=== PATIENT | male | born 1960 | race Caucasian/White ===

== ENCOUNTER 2023-10-12 11:46 | Day surgery (SDC) | payer OTHER ==
[2023-10-11 09:48] LABS: Absolute Eosinophils 0.1 K/uL (0-0.5); Absolute Lymphocytes (CBC) 0.9 K/uL (0.7-4.9); Absolute Monocytes 0.8 K/uL (0.1-1.3); Absolute Neutrophil 6.3 K/uL (1.8-8.0); Basophils % 0.4 % (0-1.3); Eosinophils % 0.8 % (0-4.4); Hemoglobin 10.6 g/dL (13.6-17.9); Lymphocytes % 11.1 % (15.3-44.8); MCH 33.1 pg (27.0-35.0); MCHC 34.1 g/dL (32.0-36.0); MCV 97.1 fL (80-100); Monocytes % 9.7 % (3.3-12.3); Nucleated Red Blood Cells % 0.1 % (0-0); Platelets 296 thou/uL (152-406); RBC Red Blood Cell Count 3.19 M/uL (4.33-5.43)
--- NOTE | 2023-10-11 14:31 | EKG ---
Test Date: 2023-10-11 Test Time: 09:11:32 Combination Machine Tender: LEX MEASUREMENT RESULTS: Intervals: Rate: 69 FL: 184 QRSD: 88 QT: 442 QTc: 473 Belding: P: 80 FL: 184 QRS: 14 T: 44 INTERPRETIVE STATEMENTS: Sinus rhythm with premature atrial complexes Otherwise normal ECG Compared to ECG 05/11/2016 09:48:08 Atrial premature complex(es) now present Sinus bradycardia no longer present Electronically Signed On 10-11-23 14:31:16 CDT by Maxwell Perez
[2023-10-12] MEDS: Ringers Lactate 1,000 ML IV ONE (12:08)
[2023-10-12] MEDS ORDERED: propofoL 200 MG/20 ML VIAL IV ONE (12:49)
[2023-10-12] MEDS ORDERED: FENTANYL CITR 100 MCG/2 ML ONE (12:50)
[2023-10-12] MEDS ORDERED: MIDAZOLAM HCL 2 MG/2 ML INJ ONE (12:50)
[2023-10-12] MEDS ORDERED: ONDANSETRON 4 MG/2 ML VIAL ONE (12:50)
[2023-10-12] MEDS ORDERED: LIDOCAINE 1% MPF 5 ML VIAL ONE (12:50)
[2023-10-12] MEDS: CEFAZOLIN SODIUM 2 GM/VIAL ONE (14:05)
[2023-10-12] MEDS: LIDOCAINE HCL/EPINEPHRINE 20 ML MDV ONE (14:17)
[2023-10-12] MEDS: HEPARIN 5000 UNIT/ML 1 ML VIAL ONE (14:34)
--- NOTE | 2023-10-12 14:55 | P.OP ---
Preoperative diagnosis: Need for Chemotherapy - Oropharyngeal Cancer Postoperative diagnosis: Need for Chemotherapy - Oropharyngeal Cancer Primary procedure: Placement of Chemotherapy Port (port a cath) using ultrasound Secondary procedure: Flouroscopy with Interpretation Anesthesia: MAC + Local Estimated blood loss: <5cc Specimen: none Findings: dark non-pulsatile blood Complications: None Implants: Power Port Transferred to: Recovery Room Condition: Good
--- NOTE | 2023-10-12 14:57 | RAD REPORT ---
EXAM DESCRIPTION: RAD - Fluoroscopy <1 Hour - 10/12/2023 2:50 pm CLINICAL HISTORY: Venous catheter insertion. PORT A CATH COMPARISON: <Comparisons> FINDINGS: Fluoroscopic imaging is submitted from placement of a venous catheter. Details of the pro cedure not available. Fluoroscopy time: 0.5 minutes
--- NOTE | 2023-10-12 15:47 | RAD REPORT ---
EXAM DESCRIPTION: RAD - Chest Single View - 10/12/2023 3:33 pm CLINICAL HISTORY: s/p port a cath placement Chest pain. COMPARISON: <Comparisons> FINDINGS: Portable technique limits examination quality. The lungs are emphysematous but grossly clear. The heart is mildly enlarged in size. No displaced fra ctures.Right-sided venous catheter has tip in the SVC. IMPRESSION: Port catheter is in expected position with tip in the SVC. No pneumothorax.
[2023-10-12 17:00] VITALS: BP 125/79; TEMP 97.5; O2SAT 100
--- NOTE | 2023-10-12 20:21 | OP ---
Date of Procedure: 10/12/2023 Surgeon: Jens Hirsch MD, Preoperative Diagnosis: Need for chemotherapy/oropharyngeal cancer. Postoperative Diagnosis: Need for chemotherapy/oropharyngeal cancer. Procedure Performed: Ultrasound guidance, placement of a chemotherapy port/Port-A-Cath using ultraso und and fluoroscopic guidance with interpretation as well as microintroducer set. Anesthesia: MAC plus local with 1% lidocaine with epinephrine. Estimated Blood Loss: Less than 5 cc. Specimen: None. Findings: Dark nonpulsatile blood returned. Complications: None. Implants: PowerPort was placed, 8 Frisian. Disposition: The patient transferred to recovery room in good condition. Procedure In Detail: After informed consent was obtained, patient was brought to the operating room, prepped and draped in the usual sterile fashion. After adequate anesthesia was achieved, the patien t was placed in steep Trendelenburg position. Using ultrasound guidance, I cannulated the right inte rnal jugular vein on the first attempt without incident or complication. At this point, the micro wi re was advanced, entered the confluence of the SVC and right atrium. This was confirmed with fluoros copic guidance, at this point. At this point, I made a sima incision using an 11 blade at the needle insertion site and then I placed micro introducer sheath which was a 5-Frisian sheath over the micro wire, at this point. Micro wire was removed. Standard wire was applied, at this point. Fluoroscopi c guidance confirmed the position of the SVC and the right atrium. At this point, I anesthetized the tract on the chest wall and made an incision overlying the chest wall, created a pocket using electr ocautery for the port, ultimately bringing a tunneling device in through the insertion site. At this point, I placed the introducer sheath using Seldinger technique after removing the microintroducer s [place] over the wire into the SVC, and then introduced the port after removing the introducer sheath. At this point, using fluoroscopic guidance, I pulled the catheter back to the confluence of the SVC. At this point, I attached the lock collar to the port, trimmed it appropriately the tubing and lock ed the lock collar onto the PowerPort, at this point, and flushed with saline quite easily. At this point, fluoroscopic guidance confirmed the position. I then flushed it heparin super flush, at this point, placed it in the chest wall pocket, left the patient in steep Trendelenburg position until thi s portion was completed. I then secured it to the port with 3 interrupted 2-0 Prolene sutures in the chest prepectoral fascia. I then irrigated all skin incisions, closed the neck incision using 3-0 n ylon in an interrupted fashion and closed the port site using interrupted 3-0 Vicryl deep dermal sutu res as well as closing the skin with 4-0 Monocryl in a running fashion. Dermabond was placed over to p. The patient tolerated the procedure without incident or complication, transferred to PACU in good condition. All counts were correct at the end of the case. HIRO/MAXIMINO Voice ID: [id number] Report ID: [id number]
== END 2023-10-12 16:50 | disposition home or self-care (01) ==
LOC: OR 11:46
PROVIDERS: ATTEND Surgery
PROC: 0JH60WZ Insertion of Totally Implantable Vascular Access Device into Chest Subcutaneous Tissue and Fascia, Open Approach (ICD-10-PCS; principal; 2023-10-12 14:15)
DX: C10.9 Malignant neoplasm of oropharynx, unspecified (principal)
CPT/HCPCS: 93005; 85025; 80048; 36415; 71045; 76000; 36561; J1644 ×2; J2704; J2001; J2250; J3010; J2405; J7120

== ENCOUNTER 2023-11-09 09:58 | Inpatient (IN) | payer OTHER ==
--- OUTSIDE RECORDS SUMMARY | 2023-11-09 10:01 | XMS REPORT | Continuity of Care Document ---
Author Name Unknown Address [address] [place] [address] thconnect Address [address] [place] [address] Care Team Providers Care [id number] Application Developer Name Role Phone SISSON_C Attending Clinician Unavailable SISSON_C Admitting Clinician Unavailable Encounters Start Date/Time End Date/Time Encounter Type Admission Type Attending Clinicians Care Facility Care Department Encounter ID Source 2023-06-16 00:00:00 2023-06-16 00:00:00 Outpatient SISSON_C [facility] [id number] [facility]
[2023-11-09 11:40] LABS: Absolute Basophils 0.1 K/uL (0-0.5); Absolute Lymphocytes (CBC) 0.1 K/uL (0.7-4.9); Absolute Monocytes 0.6 K/uL (0.1-1.3); Absolute Neutrophil 19.2 K/uL (1.8-8.0); Basophils % 0.3 % (0-1.3); Hematocrit 22.3 % (39.6-49.0); Hemoglobin 7.1 g/dL (13.6-17.9); Lymphocytes % 0.7 % (15.3-44.8); MCH 31.1 pg (27.0-35.0); MCHC 31.8 g/dL (32.0-36.0); MCV 97.7 fL (80-100); MPV 9.6 fL (7.6-11.3); Monocytes % 2.9 % (3.3-12.3); Neutrophils % 96.1 % (41.7-73.7); Platelets 70 thou/uL (152-406); RBC Red Blood Cell Count 2.29 M/uL (4.33-5.43); Red Cell Distribution Width 14.1 % (12.1-15.2)
[2023-11-09 11:48] LABS: PT Prothrombin Time 14.1 SECONDS (9.4-12.5); PTT, Activated Partial Thromb 21.2 SECONDS (24.3-36.9); Protime INR 1.27
--- NOTE | 2023-11-09 11:54 | RAD REPORT ---
EXAM DESCRIPTION: RADChest Single View11/09/2023 11:23 am CLINICAL HISTORY: TRAUMA COMPARISON: Chest Single View dated 10/12/2023 TECHNIQUE: Portable AP view of the chest. FINDINGS: Right chest wall Port-A-Cath unchanged in position. The lungs are clear. No pneumothorax or effusion. The cardiomediastinal contours are unremarkable. IMPRESSION: No acute cardiopulmonary process.
--- NOTE | 2023-11-09 11:59 | RAD REPORT ---
EXAM DESCRIPTION: RAD - Pelvis - 11/09/2023 11:23 am CLINICAL HISTORY: TRAUMA COMPARISON: No comparisons TECHNIQUE: Single AP view of the pelvis. FINDINGS: The visualized pelvic ring is intact. No suspicious osseous lesions. Right total hip arthr oplasty, with satisfactory hardware alignment. Moderate left hip joint degenerative changes. Osseous bumps at the left femoral head/ neck junction, may predispose to femoroacetabular impingement. Other pelvic joints are unremarkable. Visualized aspects of the abdomen and soft tissues are unremarkable. IMPRESSION: No acute osseous abnormality of the bony pelvis. Moderate left hip joint degenerative changes.
[2023-11-09 12:09] LABS: Albumin 2.4 g/dL (3.4-5.0); Albumin/Globulin Ratio 0.8 (1.1-1.8); Anion Gap 11.1 mEq/L (5.0-15.0); Bilirubin Total 0.6 mg/dL (0.2-1.0); Magnesium 2.7 mg/dL (1.6-2.4); Potassium 4.1 mEq/L (3.5-5.1); Protein, Total 5.4 g/dL (6.4-8.2)
[2023-11-09 12:10] LABS: Troponin High Sensitivity 372.8 pg/mL (<58.9)
[2023-11-09 12:26] LABS: Blood Morphology Comment NOT SEEN (NOT SEEN); Platelet Estimate DECR; White Blood Cell Scan OK (OK)
--- NOTE | 2023-11-09 12:56 | RAD REPORT ---
EXAM DESCRIPTION: CT - Head C Spine Cap Wo Con - 11/09/2023 12:33 pm CLINICAL HISTORY: Trauma, head and neck injury. Chest, abdomen and pelvis pain. TRAUMA COMPARISON: Chest Single View dated 11/09/2023; Pelvis dated 11/09/2023 TECHNIQUE: CT head without contrast. CT cervical spine without contrast with coronal and sagittal reformatted images. CT chest, abdomen and pelvis without contrast with coronal and sagittal reformatted images of the spi ne. All CT scans are performed using dose optimization technique as appropriate and may include automated exposure control or mA/KV adjustment according to patient size. FINDINGS: CT HEAD WITHOUT CONTRAST: No intracranial hemorrhage, hydrocephalus or extra-axial fluid collection. No areas of brain edema o r midline shift. There is a large mass measuring 5.0 x 2.5 cm right retromolar trigone region. The right mastoid effusion. The calvarium is intact. CT CERVICAL SPINE WITHOUT CONTRAST: No fracture or subluxation. Moderate lower cervical degenerative changes. The prevertebral soft tissu es are normal in thickness. CT CHEST, ABDOMEN, PELVIS WITHOUT CONTRAST: NOTE: Lack of contrast is a significant limitation in the assessment of trauma related findings. Spec ifically, solid organ, vascular and bowel evaluation is significantly limited. The lungs are clear.No pneumothorax or pericardial/pleural fluid. No evidence of intra-abdominal visceral injury, free fluid or free air is seen within the above detai led limitations. Moderate stool retained throughout the colon. Right total hip arthroplasty No fractures. IMPRESSION: Negative for acute traumatic findings within the above detailed limitations. 5 cm right-sided neck mass, compatible with malignancy.
--- NOTE | 2023-11-09 14:22 | EDPHYS ---
Physician Documentation [facility] Name: Jori Beckham Age: 63 yrs Sex: Male : 1960 Arrival Date: 11/09/2023 Time: 09:58 Bed 24 Private MD: ED Physician Tequila Briseno HPI: 11/08 15:05 This 63 yrs old Male presents to ER via EMS with complaints of General Weakness, Fall sd2 Injury. 15:05 63 yo M presents via EMS with CC of fall yesterday where he was found on the ground by sd2 his grandson. He has continued to have generalized weakness for the past few days as well. Denies any fever, chest pain but does endorse bilateral leg edema. . Historical: - Allergies: 10:24 No Known Allergies; ph - Home Meds: 10:24 Hydrocodone-Acetaminophen Oral [Active]; Decadron Oral [Active]; ph - PMHx: 10:24 throat cancer; ph - Immunization history:: Adult Immunizations unknown. - Infectious Disease History:: Denies. - Immunization history: Last tetanus immunization: unknown. - Social history:: Smoking status: unknown. ROS: 15:05 Constitutional: Negative for fever, chills, and weight loss, Eyes: Negative for injury, sd2 pain, redness, and discharge, Cardiovascular: Negative for chest pain, palpitations, and edema, Respiratory: Negative for shortness of breath, cough, wheezing. Abdomen/GI: Negative for abdominal pain,vomiting, diarrhea. Positive for nausea. : Negative for dysuria, frequency or hematuria. MS/Extremity: Negative for injury and deformity, Skin: Negative for injury, rash, and discoloration, Neuro: Negative for headache, numbness and tingling. Exam: 15:05 Constitutional: This is a well developed, well nourished patient who is awake, alert, sd2 and in no acute distress. Head/Face: Normocephalic, atraumatic. Eyes: EOMI, normal conjunctiva bilaterally Chest/axilla: Normal chest wall appearance and motion. Nontender with no deformity. Cardiovascular: Irregularly irregular rhythm No gallops, murmurs, or rubs. 2+ distal pulses. Respiratory: Lungs have equal breath sounds bilaterally, clear to auscultation and percussion. No rales, rhonchi or wheezes noted. No increased work of breathing, no retractions or nasal flaring. Abdomen/GI: Soft, non-tender, with normal bowel sounds. No guarding or rebound. No evidence of tenderness throughout. Skin: Warm, dry with normal turgor. Normal color with no rashes, no lesions, and no evidence of cellulitis. MS/ Extremity: Pulses equal, no cyanosis. Neurovascular intact. Full, normal range of motion. 2+ pitting BLE edema Psych: Awake, alert, with orientation to person, place and time. Behavior, mood, and affect are within normal limits. 15:05 ECG was reviewed by the Attending Physician. A-fib, rate 83, no STEMI criteria Vital Signs: 10:19 BP 110 / 73; Pulse 92; Resp 18; Temp 97.4; Pulse Ox 100% on R/A; Weight 95.25 kg; ph Height 5 ft. 9 in. ; 12:30 BP 115 / 76; Pulse 80; Resp 18; Pulse Ox 99% on R/A; ph 13:30 BP 110 / 79; Pulse 81; Resp 19; Pulse Ox 100% on R/A; ph 15:15 BP 112 / 71; Pulse 100; Resp 18; Pulse Ox 97% on R/A; ph 10:19 Body Mass Index 31.01 (95.25 kg, 175.26 cm) ph [place] Coma Score: 11:36 Eye Response: spontaneous(4). Motor Response: obeys commands(6). Verbal Response: ph oriented(5). Total: 15. Trauma Score (Adult): 11:36 Eye Response: spontaneous(1); Verbal Response: oriented(1); Motor Response: obeys ph commands(2); Systolic BP: > 89 mm Hg(4); Respiratory Rate: 10 to 29 per min(4); Marvin Score: 15; Trauma Score: 12 MDM: 10:21 Patient medically screened. sd2 15:07 Differential diagnosis: ICH, electrolyte abnormality, rhabdo, ACS, anemia, dehydration sd2 among others. Data reviewed: vital signs, nurses notes, EMS record, lab test result(s), EKG, radiologic studies. Management of patient was discussed with the following: Hospitalist: Dr. Quintanilla. I considered the following discharge prescriptions or medication management in the emergency department Medications were administered in the Emergency Department. See MAR. Historians other than the Patient: Daughter/Son: Grandson and sister at . Care significantly affected by the following chronic conditions: Cancer. Counseling: I had a detailed discussion with the patient and/or guardian regarding the historical points, exam findings, and any diagnostic results supporting the discharge/admit diagnosis, lab results, radiology results, the need for further work-up and treatment in the hospital. ED course: Labs consistent with CHF with likely demand ischemia vs NSTEMI. Prior creatinine elevated and continues to be elevated today. BP stable and A-fib rate controlled which is also new per patient. Will admit for further management. IV Lasix started and given in ER as well as ASA.. 11/08 15:22 Order name: Type and Screen [facility] 11/08 10:58 Order name: CBC with Diff; Complete Time: 13:03 11/08 10:58 Order name: CMP; Complete Time: 13:03 11/08 10:58 Order name: Magnesium; Complete Time: 13:03 11/08 10:58 Order name: Troponin High Sensitivity; Complete Time: 13:03 11/08 10:58 Order name: BNP; Complete Time: 13:03 11/08 10:58 Order name: Lipase; Complete Time: 13:03 11/08 10:58 Order name: Urinalysis w/ reflexes 11/08 10:58 Order name: Procalcitonin; Complete Time: 13:03 11/08 10:59 Order name: PT-INR; Complete Time: 12:00 11/08 10:59 Order name: Ptt, Activated; Complete Time: 12:00 11/08 12:27 Order name: CBC Smear Scan; Complete Time: 13:03 WI 11/08 14:30 Order name: CK 11/08 15:22 Order name: Packed RBC Leukored WI 11/08 15:22 Order name: BB Add On WI 11/08 15:22 Order name: Hematocrit WI 11/08 15:22 Order name: Hemoglobin [facility] 11/08 15:22 Order name: Thyroid Stimulating Hormone [facility] 11/08 15:22 Order name: Urinalysis w/ reflexes WI 11/08 15:22 Order name: Basic Metabolic Panel [facility] 11/08 15:22 Order name: Basic Metabolic Panel EDMS 11/08 15:22 Order name: Basic Metabolic Panel EDMS 11/08 15:22 Order name: Comprehensive Metabolic Panel EDMS 11/08 15:22 Order name: Comprehensive Metabolic Panel EDMS 11/08 15:22 Order name: Comprehensive Metabolic Panel EDMS 11/08 15:22 Order name: Comprehensive Metabolic Panel EDMS 11/08 15:22 Order name: Comprehensive Metabolic Panel EDMS 11/08 15:22 Order name: Lipid Profile EDMS 11/08 15:22 Order name: Lipid Profile EDMS 11/08 15:22 Order name: Magnesium EDMS 11/08 15:22 Order name: Magnesium EDMS 11/08 15:22 Order name: Magnesium EDMS 11/08 15:22 Order name: Magnesium EDMS 11/08 15:22 Order name: Magnesium EDMS 11/08 15:22 Order name: Phosphorus EDMS 11/08 15:22 Order name: Phosphorus EDMS 11/08 15:22 Order name: Phosphorus EDMS 11/08 15:22 Order name: Phosphorus EDMS 11/08 15:22 Order name: Phosphorus EDMS 11/08 15:22 Order name: Protime (+INR) EDMS 11/08 15:22 Order name: Protime (+INR) EDMS 11/08 15:22 Order name: Troponin High Sensitivity EDMS 11/08 15:22 Order name: Troponin High Sensitivity EDMS 11/08 15:22 Order name: Troponin High Sensitivity EDMS 11/08 15:22 Order name: Hematocrit EDMS 11/08 15:22 Order name: Hemoglobin EDMS 11/08 15:22 Order name: Blood Culture EDMS 11/08 15:23 Order name: Ferritin EDMS 11/08 15:23 Order name: Iron EDMS 11/08 15:24 Order name: ABO/RH typing EDMS 11/08 15:24 Order name: Antibody Screen EDMS 11/08 18:05 Order name: PSA Screen EDMS 11/08 18:36 Order name: ABO/RH no charge EDMS 11/08 19:33 Order name: Acute Hepatitis Panel EDMS 11/09 05:19 Order name: Hemoglobin EDMS 11/09 05:19 Order name: Hematocrit EDMS 11/09 12:14 Order name: Potassium EDMS 11/08 10:58 Order name: XRAY Chest (1 view); Complete Time: 12:00 sd2 11/08 10:58 Order name: XRAY Pelvis; Complete Time: 12:00 sd2 11/08 12:24 Order name: Head C Spine Cap Wo Con; Complete Time: 13:03 EDWI 11/08 15:22 Order name: Echo with Doppler EDWI 11/08 15:22 Order name: CONS Physician Consult EDWI 11/08 10:58 Order name: EKG - Nurse/Tech; Complete Time: 11:59 sd2 Administered Medications: 11:35 Drug: NS 0.9% IV 500 ml IV at bolus once Route: IV; Rate: bolus; Site: right ph antecubital; 13:00 Follow up: Response: No adverse reaction; IV Status: Completed infusion; IV Intake: ph 500ml 15:15 Drug: Aspirin PO Chewable Tablet 324 mg PO once; 81 mg tablets x 4 Route: PO; ph 16:00 Follow up: Response: No adverse reaction ph 15:15 Drug: Furosemide IVP 40 mg IVP once; give over 2 minutes Route: IVP; Site: right ph antecubital; 16:00 Follow up: Response: No adverse reaction ph Disposition Summary: 11/09/23 14:21 Hospitalization Ordered Notes: Hospitalization Status: Inpatient Admission sd2 Provider: Thania Treviño sd2 Condition: Stable sd2 Problem: new sd2 Symptoms: are unchanged sd2 Bed/Room Type: [place] [id number] Location: Intensive Care Unit(11/10/23 12:17) [facility] Room Assignment: -(11/10/23 12:17) [facility] Diagnosis - Fall on same level, unspecified sd2 - Weakness sd2 - Atrial fibrillation sd2 - Fluid overload sd2 - Acute Kidney Injury sd2 Forms: - Medication Reconciliation Form sd2 - SBAR form sd2 - Leadership Thank You Letter sd2 Signatures: Dispatcher [employer] EDMS Clarisse Jarvis RN RN ph Tiki Hodge RN RN vc1 Tequila Briseno MD MD sd2 Teri Melchor [facility] Corrections: (The following items were deleted from the chart) 10:59 10:59 CBC+H.LAB.BRZ ordered. EDMS EDMS 10:59 10:59 COMPREHENSIVE METABOLIC PANEL+C.LAB.BRZ ordered. EDMS EDMS 10:59 10:59 MAGNESIUM+C.LAB.BRZ ordered. EDMS EDMS 10:59 10:59 Troponin High Sensitivity+C.LAB.BRZ ordered. EDMS EDMS 10:59 10:59 PROBNP+C.LAB.BRZ ordered. EDMS EDMS 10:59 10:59 LIPASE+C.LAB.BRZ ordered. EDMS EDMS 10:59 10:59 Urinalysis+U.LAB.BRZ ordered. EDMS EDMS 10:59 10:59 PCT+C.LAB.BRZ ordered. EDMS EDMS 10:59 10:59 Chest Single View+RAD.RAD.BRZ ordered. EDMS EDMS 10:59 10:59 Pelvis+RAD.RAD.BRZ ordered. EDMS EDMS 10:59 10:59 Head C Spine CAP W Con+CT.RAD.BRZ ordered. EDMS EDMS 10:59 10:59 PROTIME (+INR)+COAG.LAB.BRZ ordered. EDMS EDMS 10:59 10:59 PTT, ACTIVATED+COAG.LAB.BRZ ordered. EDMS EDMS 22:39 14:21 Telemetry/MedSurg (Inpatient) sd2 vc1 22:39 14:21 sd2 vc1 11/09 12:17 11/08 22:39 [facility] ER HOLD vc1 jr12 11/09 12:17 11/08 22:39 ERHOLD- vc1 jr
--- NOTE | 2023-11-09 14:22 | ER ---
Nurse's Notes [facility] Name: Jori Beckham Age: 63 yrs Sex: Male : 1960 Arrival Date: 11/09/2023 Time: 09:58 Bed 24 Private MD: Diagnosis: Fall on same level, unspecified;Weakness;Atrial fibrillation;Fluid overload Presentation: 11/08 10:19 Chief complaint: EMS states: Pt hx of throat cancer, currently receives daily radiation ph treatment, pt fell yesterday d/t weakness and was "out of it for a few hours", did not go for radiation today d/t weakness, VSS for EMS, BGL 200s, denies injury from fall but c/o pain in buttocks. Coronavirus screen: Vaccine status: Patient reports receiving the 2nd dose of the covid vaccine. Ebola Screen: No symptoms or risks identified at this time. Initial Sepsis Screen: Does the patient meet any 2 criteria? No. Patient's initial sepsis screen is negative. Does the patient have a suspected source of infection? No. Patient's initial sepsis screen is negative. Risk Assessment: Do you want to hurt yourself or someone else? Patient reports no desire to harm self or others. Onset of symptoms was November 09, 2023. 10:19 Method Of Arrival: EMS: [facility] 10:19 Acuity: MICHELLE 3 ph 10:19 Care prior to arrival: None. Mechanism of Injury: No Mechanism of Injury. Trauma event ph details: Injury occurred in the [facility], Injury occurred: at home. Injury occurred: November 09, 2023. Triage Assessment: 10:25 General: Appears in no apparent distress. Behavior is calm, cooperative. Pain: ph Complains of pain in buttocks. Neuro: Level of Consciousness is awake, alert, obeys commands, Oriented to person, place, time, situation. Cardiovascular: Capillary refill < 3 seconds in bilateral fingers. Respiratory: Airway is patent Respiratory effort is even, unlabored. Derm: Skin is pale. Musculoskeletal: Circulation, motion, and sensation intact. Trauma Activation: Not Applicable Physician: ED Physician; Name: ; Notified At: ; Arrived At: Physician: General Surgeon; Name: ; Notified At: ; Arrived At: Physician: Radiology; Name: ; Notified At: ; Arrived At: Physician: Respiratory; Name: ; Notified At: ; Arrived At: Physician: Lab; Name: ; Notified At: ; Arrived At: Historical: - Allergies: 10:24 No Known Allergies; ph - Home Meds: 10:24 Hydrocodone-Acetaminophen Oral [Active]; Decadron Oral [Active]; ph - PMHx: 10:24 throat cancer; ph - Immunization history:: Adult Immunizations unknown. - Infectious Disease History:: Denies. - Immunization history: Last tetanus immunization: unknown. - Social history:: Smoking status: unknown. Screenin:36 [facility] ED Fall Risk Assessment (Adult) History of falling in the last 3 months, ph including since admission No falls in past 3 months (0 pts) Confusion or Disorientation No (0 pts) Intoxicated or Sedated No (0 pts) Impaired Gait No (0 pts) Mobility Assist Device Used No (0 pt) Altered Elimination No (0 pt) Score/Fall Risk Level 0 - 2 = Low Risk Oriented to surroundings, Maintained a safe environment, Hourly rounding (assess needs \\T\\ fall precautionary measures) done. Abuse screen: Denies threats or abuse. Denies injuries from another. Nutritional screening: No deficits noted. Tuberculosis screening: No symptoms or risk factors identified. Primary Survey: 11:38 NO uncontrolled hemorrhage observed. A: The client is awake and alert. The airway is ph patent. Breathing/Chest: Spontaneous respiratory effort, equal unlabored respirations, breath sounds clear bilaterally, regular pattern, symmetrical chest rise and fall. Circulation: No external hemorrhage present. Regular and strong central pulse, skin warm/dry/normal color. Disability Pupils are equal, round, reactive to light and accommodation. Client is alert. Exposure/Environment: All clothing and personal items were removed. Forensic evidence collection is not deemed to be indicated at this time. Items placed in patient belonging bag. There is no evidence of uncontrolled external bleeding. No obvious injuries are noted at this time. A warming method has been applied: A warm blanket has been provided to the patient. 11/09 00:00 Reassessment Breathing: Spontaneous respiratory effort, equal unlabored respirations, cp4 breath sounds clear bilaterally, regular pattern with symmetrical chest rise and fall. Assessment: 11/08 11:37 General: Appears in no apparent distress. ill. Pain: Complains of pain in buttocks. ph Neuro: Level of Consciousness is awake, alert, obeys commands, Oriented to person, place, time, situation, Reports weakness. Cardiovascular: Capillary refill < 3 seconds in bilateral fingers Patient's skin is warm and dry. Respiratory: Airway is patent Respiratory effort is even, unlabored. Derm: Skin is pink, warm \\T\\ dry. Musculoskeletal: Range of motion: intact in all extremities. 13:00 Reassessment: Patient appears in no apparent distress at this time. Patient and/or ph family updated on plan of care and expected duration. Pain level reassessed. Patient is alert, oriented x 3, equal unlabored respirations, skin warm/dry/pink. 14:30 Reassessment: Patient appears in no apparent distress at this time. Patient and/or ph family updated on plan of care and expected duration. Pain level reassessed. Patient is alert, oriented x 3, equal unlabored respirations, skin warm/dry/pink. Vital Signs: 10:19 BP 110 / 73; Pulse 92; Resp 18; Temp 97.4; Pulse Ox 100% on R/A; Weight 95.25 kg; ph Height 5 ft. 9 in. ; 12:30 BP 115 / 76; Pulse 80; Resp 18; Pulse Ox 99% on R/A; ph 13:30 BP 110 / 79; Pulse 81; Resp 19; Pulse Ox 100% on R/A; ph 15:15 BP 112 / 71; Pulse 100; Resp 18; Pulse Ox 97% on R/A; ph 10:19 Body Mass Index 31.01 (95.25 kg, 175.26 cm) ph [place] Coma Score: 11:36 Eye Response: spontaneous(4). Motor Response: obeys commands(6). Verbal Response: ph oriented(5). Total: 15. Trauma Score (Adult): 11:36 Eye Response: spontaneous(1); Verbal Response: oriented(1); Motor Response: obeys ph commands(2); Systolic BP: > 89 mm Hg(4); Respiratory Rate: 10 to 29 per min(4); [place] Score: 15; Trauma Score: 12 ED Course: 10:18 Patient arrived in ED. ph 10:21 Tequila Briseno MD is Attending Physician. sd2 10:24 Triage completed. ph 10:25 Arm band placed on Patient placed in an exam room, on a stretcher. ph 11:12 Jarvis, Clarisse, RN is Primary Nurse. ph 11:25 XRAY Chest (1 view) In Process Unspecified. EDMS 11:25 XRAY Pelvis In Process Unspecified. EDMS 11:35 Ptt, Activated Sent. ph 11:35 PT-INR Sent. ph 11:35 Procalcitonin Sent. ph 11:35 Lipase Sent. ph 11:35 BNP Sent. ph 11:35 CBC with Diff Sent. ph 11:35 CMP Sent. ph 11:36 Magnesium Sent. ph 11:36 Troponin High Sensitivity Sent. ph 11:36 Initial lab(s) drawn, by me, sent to lab. Maintain EMS IV. Dressing intact. Good blood ph return noted. Site clean \\T\\ dry. Gauge \\T\\ site: 20 RAC. 12:33 Patient has correct armband on for positive identification. Bed in low position. Call ph light in reach. Side rails up X2. Client placed on continuous cardiac and pulse oximetry monitoring. NIBP monitoring applied. athletic monitor on. Door closed. Noise minimized. Warm blanket given. Pillow given. PO fluids given. 12:33 Patient maintains SpO2 saturation greater than 95% on room air. ph 12:33 Thermoregulation: warm blanket given to patient. ph 12:35 Head C Spine Cap Wo Con In Process Unspecified. EDMS 14:20 Thania Treviño MD is Hospitalizing Provider. sd2 15:00 No provider procedures requiring assistance completed. Patient admitted, IV remains in ph place. 11/09 00:00 Provided Education on: admission. cp4 06:28 Cleaned of incontinence. Patient refused gown. vk Administered Medications: 11/08 11:35 Drug: NS 0.9% IV 500 ml IV at bolus once Route: IV; Rate: bolus; Site: right ph antecubital; 13:00 Follow up: Response: No adverse reaction; IV Status: Completed infusion; IV Intake: ph 500ml 15:15 Drug: Aspirin PO Chewable Tablet 324 mg PO once; 81 mg tablets x 4 Route: PO; ph 16:00 Follow up: Response: No adverse reaction ph 15:15 Drug: Furosemide IVP 40 mg IVP once; give over 2 minutes Route: IVP; Site: right ph antecubital; 16:00 Follow up: Response: No adverse reaction ph Medication: 18:05 VIS not applicable for this client. ph Intake: 13:00 IV: 500ml; Total: 500ml. ph 11/09 00:00 PO: 0ml; Total: 500ml. cp4 Outcome: 11/08 14:21 Decision to Hospitalize by Provider. sd2 15:00 Admitted to ER Hold. Please see [facility] for further documentation. ph 15:00 Condition: stable 15:00 Instructed on the need for admit, 11/09 00:00 ER holdPatient's length of stay extended due to cp4 13:47 Patient left the ED. eb Signatures: Dispatcher [employer] Clarisse Acevedo RN RN ph Nabila Major Stephanie, MD MD sd2 Tsering Cooper cp4 Anushka Marr
[2023-11-09] MEDS ORDERED: ASPIRIN 81 MG CHEWABLE TABLET ONE (15:05)
[2023-11-09] MEDS ORDERED: FUROSEMIDE 40 MG/4 ML VIAL ONE ×2 (15:05→22:08)
--- NOTE | 2023-11-09 15:09 | P.HP ---
Certification for Inpatient Patient admitted to: Inpatient With expected LOS: >2 Midnights <DaphneyGiulia Sanches - Last Filed: 11/09/23 16:49> Patient History Date of Service: 11/09/23 Primary Care Provider: none Reason for admission: Swelling, weakness History of Present Illness: Mr. Beckham is a 63-year-old gentleman who does not frequent a primary care physician. He is a rather poor historian . 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 Thus his voice is weak, mildly difficult to understand, without airway compromise. He presented to the emergency department today with a complaint of weakness, admits to a fall yesterday (11/08/2023). On exam he is a pale, disheveled, alert gentleman with pitting edema/anasarca, and scattered petechiae. He is noted to have an irregularly irregular rhythm with tachycardia. He states yesterday he just "swole up". He admits to mild dysphagia and has been taking clear to full liquids. He denies fever, nausea, vomiting, gingival bleeding, or black stools. He denies ever smoking; however, he did drink daily but states he quit 3 months ago and denies ever having DTs. We will admit him for aggressive diuresis, packed red blood cells, rate control of A-fib, echocardiogram, serial H&H's, and consultation to both cardiology and nephrology. Home medications list reviewed: Yes - Past Medical/Surgical History Has patient received pneumonia vaccine in the past: No Diabetic: No -: Right hip fx -: right tonsillar ca -: hx of ETOH abuse -states he quit three months ago, denies hx of DTs -: right hip surgery Psychosocial/ Personal History: Single, lives alone, states Dr. Rigo bowles agnosed his tonsillar cancer. He receives radiation and chemo every Tuesday for the last 3 weeks - Family History Family History: Reviewed- Non-Contributory - Social History Smoking Status: Never smoker Alcohol use: Yes CD- Drugs: No Caffeine use: No Place of Residence: Home <Giulia Shelley - Last Filed: 11/09/23 16:49> Date of Service: 11/09/23 <Thania Treviño - Last Filed: 11/09/23 18:09> Allergies No Known Allergies Allergy (Verified 10/12/23 12:23) Home Medications: Amoxicillin/Potassium Clav [Amox-Clav 875-125 mg Tablet] 1 each PO BID 10/11/23 Hydrocodone/Acetaminophen [Hydrocodone-Acetamin 5-325 mg] 1 tab PO Q6HP PRN 10/11/23 Review of Systems 10-point ROS is otherwise unremarkable General: Weakness, Malaise Cardiovascular: Palpitations, Edema Neurological: Other (syncopal 11/08/23) <Giulia Shelley - Last Filed: 11/09/23 16:49> Physical Examination - Physical Exam General: Oriented x3, Obese, Other (anasarca/ strong odor of urine) HEENT: Atraumatic Neck: Other (hoarse voice, dry, right tonsillar ca, swallows clear/full liquids) Respiratory: Normal air movement Cardiovascular: Abnormal S3, Edema, Irregular heart rate/rhythm Capillary refill: >2 Seconds Gastrointestinal: Soft and benign Musculoskeletal: No clubbing Integumentary: Other (petechiae over dorsal hands/arms, some scattered on feet.) Neurological: Normal affect, Abnormal speech, Abnormal strength Lymphatics: No axilla or inguinal lymphadenopathy External genitalia: Deferred Rectal: Deferred - Studies Laboratory Data (last 24 hrs) 11/09/23 11/09/23 11/09/23 11:30 11:30 11:30 WBC 20.00 H Hgb 7.1 L Hct 22.3 L Plt Count 70 L PT 14.1 H INR 1.27 APTT 21.2 L Sodium 140 Potassium 4.1 BUN 102 H Creatinine 2.91 H Glucose 242 H Magnesium 2.7 H Total Bilirubin 0.6 AST 27 ALT 57 Alkaline Phosphatase 118 H Lipase 13 <Giulia Shelley Myron - Last Filed: 11/09/23 16:49> - Studies Laboratory Data (last 24 hrs) 11/09/23 11/09/23 11/09/23 11:30 11:30 11:30 WBC 20.00 H Hgb 7.1 L Hct 22.3 L Plt Count 70 L PT 14.1 H INR 1.27 APTT 21.2 L Sodium 140 Potassium 4.1 BUN 102 H Creatinine 2.91 H Glucose 242 H Magnesium 2.7 H Total Bilirubin 0.6 AST 27 ALT 57 Alkaline Phosphatase 118 H Lipase 13 <Thania Treviño Nancy - Last Filed: 11/09/23 18:09> Assessment and Plan - Plan Anemia - acute blood loss/petechiae 2units PRBC, serial H/H haptogen level monitor and trend CHF with LORENE Echocardiogram Beta-may Cardiology consultation Nephrology consultation Aggressive diuresis/lasix 40mg IV BID Strict Is & Os Daily weight Atrial fibrillation: Metoprolol for rate control Anticoagulation - heparin cautiously - bleeding/petechia/anemia Echocardiogram TSH Cardiology consultation Throat ca - radiation Hoarse, weak voice keep HOB up 30 degrees (has been getting chemo and radiation q Tuesday x 3) Pain Morphine 4mg q4h prn nausea control prn Leukocytosis UA/UC/Blood cultures Cefepime PSA VTE/GI prophylaxis SCD, heparin/Protonix - Advance Directives Does patient have a Living Will: No Does patient have a Durable POA for Healthcare: No <Giulia Shelley - Last Filed: 11/09/23 16:49> - Plan Pt seen and examined. I agree with the note by the [employer]. Pt is a 63 yo male with past medical history of throat cancer who presents with shortness of breath and generalized weakness. Of note, pt has been getting chemotherapy on Mondays and radiation Tue to tuesday for the past 3 weeks. He felt very weak this am and his son brought him to the for admission. On admission, lab studies show wbc 20, hgb 7.1, K 4.1, Cr 2.91, troponin 372.[address] head 5 x 2.5cm lesion in the right retromolar trigone region and 5cm right neck mass. At bedside, pt is in NAD. A/P: New onset CHF: BNP is 4755. F/u Echo. Will continue Lasix 40mg iv BID, strict I/o and daily weight. Consulted cardiology. Anemia: Hgb is 7.1. Will transfuse 2 units of blood. Will monitor H/H. A. fib: Will continue telemetry, BB and heparin drip. Monitor for bleeding. Hx of throat cancer: Will continue to follow up with Oncologist in clinic. Continue prn pain med. CT head 5 x 2.5cm lesion in the right retromolar trigone region and 5cm right neck mass. Nutrition: Continue clear liquid diet. DVT ppx: SCD Code: full <Thania Treviño - Last Filed: 11/09/23 18:09>
[2023-11-09] MEDS ORDERED: SODIUM CHLORIDE 0.9% 10ML INJ IV PRN (16:21)
[2023-11-09] MEDS: FUROSEMIDE 40 MG/4 ML VIAL IV SCH (17:00)
[2023-11-09] MEDS: METOPROLOL TAR 25 MG TAB PO SCH (18:00)
[2023-11-09 18:05] LABS: Ferritin 1518.5 ng/mL (26-388)
[2023-11-09 19:02] VITALS: BMI 31.0
[2023-11-09 19:33] LABS: Hepatitis B Core IgM Nonreactive (Nonreactive); Hepatitis B surface AG Interp. Nonreactive (Nonreactive); Hepatitis C Virus Ab Nonreactive (Nonreactive)
[2023-11-09 19:34] LABS: HBsAG Nonreactive Report Report
[2023-11-09] MEDS ORDERED: NA CHLORIDE 0.9% 250 ML ONE (19:35)
[2023-11-09 20:15] LABS: Specific Gravity 1.014 (1.005-1.030); Sqamous Epithelial <5 /HPF (None Seen); Urine Bacteria 20-50 /HPF (<20); Urine Bilirubin NEGATIVE (Negative); Urine Blood Negative (Negative); Urine Clarity Extremely Turbid (Clear); Urine Color Light-Yellow (Yellow); Urine Crystals Unidentified Few /HPF (None Seen); Urine Culture Reflex Order REFLEXED; Urine Glucose 1+ (Negative); Urine Ketones NEGATIVE (Negative); Urine Microscopic Reflex YN ORDER UMIC; Urine Nitrite NEGATIVE (Negative); Urine Protein NEGATIVE (Negative); Urine RBC <5 /HPF (None Seen); Urine Urobilinogen Normal (Normal); Urine WBC >50 /HPF (<5); Urine pH 7.5 (5.0-7.0)
[2023-11-09] MEDS: HEPARIN 5000 UNIT/ML 1 ML VIAL SQ SCH (21:00)
[2023-11-09] MEDS: PANTOPRAZOLE 40 MG INJ IVP SCH (21:00)
[2023-11-09] MEDS: CEFEPIME 1 GM in NA CHLORIDE 0.9% 100 ML IV SCH (21:00)
[2023-11-09] MEDS ORDERED: PANTOPRAZOLE 40 MG INJ ONE (22:08)
[2023-11-09] MEDS ORDERED: NA CHLORIDE 0.9% 100 ML ONE (22:08)
[2023-11-09] MEDS ORDERED: CEFEPIME 1 GM/VIAL ONE (22:09)
[2023-11-10] MEDS ORDERED: METOPROLOL TAR 25 MG TAB ONE (05:04)
[2023-11-10 05:11] LABS: Hematocrit 26.3 % (39.6-49.0); Hemoglobin 8.7 g/dL (13.6-17.9)
[2023-11-10 05:22] LABS: PT Prothrombin Time 13.5 SECONDS (9.4-12.5); Protime INR 1.21
[2023-11-10 05:29] LABS: Albumin 2.5 g/dL (3.4-5.0); Albumin/Globulin Ratio 0.8 (1.1-1.8); Anion Gap 14.4 mEq/L (5.0-15.0); Bilirubin Total 1.1 mg/dL (0.2-1.0); Globulin 3.1 g/dL (2.3-3.5); Magnesium 2.3 mg/dL (1.6-2.4); Phosphorus 4.3 mg/dL (2.5-4.9); Potassium 3.4 mEq/L (3.5-5.1); Protein, Total 5.6 g/dL (6.4-8.2)
[2023-11-10 05:31] LABS: Troponin High Sensitivity 354.8 pg/mL (<58.9)
[2023-11-10] MEDS: POTASSIUM 25 MEQ EFFERV TAB PO ONE (06:09)
[2023-11-10] MEDS ORDERED: FUROSEMIDE 40 MG/4 ML VIAL ONE (06:11)
[2023-11-10] MEDS ORDERED: POTASSIUM 25 MEQ EFFERV TAB ONE (06:11)
[2023-11-10] MEDS: MORPHINE 4 MG/ML SYR IV PRN (08:00)
[2023-11-10] MEDS ORDERED: MORPHINE 4 MG/ML SYR ONE (08:39)
[2023-11-10] MEDS ORDERED: PANTOPRAZOLE 40 MG INJ ONE (09:47)
[2023-11-10] MEDS ORDERED: NA CHLORIDE 0.9% 100 ML ONE (09:47)
[2023-11-10] MEDS ORDERED: CEFEPIME 1 GM/VIAL ONE (09:48)
--- NOTE | 2023-11-10 10:10 | P.PN ---
Subjective Date of Service: 11/10/23 Primary Care Provider: none Chief Complaint: Swelling, weakness Subjective: No new changes (looks uncomfortable, ill, pale) <Giulia Shelley - Last Filed: 11/10/23 10:04> Date of Service: 11/10/23 <Thania Treviño Nancy - Last Filed: 11/10/23 12:59> Review of Systems 10-point ROS is otherwise unremarkable General: Weakness, Malaise Respiratory: Shortness of Breath <Giulia Shelley - Last Filed: 11/10/23 10:04> Physical Examination - Vital Signs Temperature: 98.1 F Blood Pressure: 113/72 Pulse: 79 Respirations: 18 Pulse Ox (%): 100 - Physical Exam General: Oriented x3, Mild distress HEENT: Atraumatic, Normocephalic Neck: JVD distended Respiratory: Normal air movement Cardiovascular: Edema, Irregular heart rate/rhythm Capillary refill: <2 Seconds Gastrointestinal: Soft and benign Musculoskeletal: No clubbing Integumentary: Other (pallor, petechiae) Neurological: Abnormal speech, Abnormal tone, Abnormal affect Lymphatics: No axilla or inguinal lymphadenopathy External genitalia: Deferred Rectal: Deferred - Studies Laboratory Data (last 24 hrs) 11/09/23 11/09/23 11/09/23 11:30 11:30 11:30 WBC 20.00 H Hgb 7.1 L Hct 22.3 L Plt Count 70 L PT 14.1 H INR 1.27 APTT 21.2 L Sodium 140 Potassium 4.1 BUN 102 H Creatinine 2.91 H Glucose 242 H Magnesium 2.7 H Total Bilirubin 0.6 AST 27 ALT 57 Alkaline Phosphatase 118 H Lipase 13 <Giulia Shelley - Last Filed: 11/10/23 10:04> Assessment And Plan - Plan Anemia - acute blood loss/petechiae 2units PRBC, serial H/H haptogen level monitor and trend CHF with LORENE Echocardiogram Beta-may Cardiology consultation - Dr. Ledesma following Nephrology consultation Aggressive diuresis/lasix 40mg IV BID Strict Is & Os Daily weight Atrial fibrillation: Metoprolol for rate control Anticoagulation - heparin cautiously - bleeding/petechia/anemia Echocardiogram TSH Cardiology consultation Throat ca - radiation Hoarse, weak voice keep HOB up 30 degrees (has been getting chemo and radiation q Que x 3) Nutrition/Hypoalbuminemia - 11/10/23 albumin 25gm IV Pain Morphine 4mg q4h prn nausea control prn Leukocytosis UA/UC/Blood cultures Cefepime PSA VTE/GI prophylaxis SCD, heparin/Protonix <Giulia Shelley - Last Filed: 11/10/23 10:04> - Plan Pt seen and examined. I agree with the note by the SMOKE CHASER. Hgb is 8.7 after 1 unit of blood. Will give 1 more unit of blood. Continue lasix 40mg iv BID. Consulted Cardiology for NSTEMI. F/u Echo. Continue telemetry, metoprolol and heparin drip. Monitor H/H. <Thania Treviño - Last Filed: 11/10/23 12:59>
[2023-11-10] MEDS: ALBUMIN HUMAN 25% 100 ML IV ONE (11:00)
--- NOTE | 2023-11-10 11:37 | P.CNS ---
Date of Consult: 11/10/23 Primary Care Provider: none Chief Complaint: Swelling, weakness History of Present Illness: Patient with PMH of right tonsillar cancer on chemo and radiation presented with generalized weakness, bilateral lower extremities edema, patient denies having chest pain, no SOB, no palpitations, no syncope, report poor oral intake. Allergies No Known Allergies Allergy (Verified 10/12/23 12:23) Home medications list reviewed: Yes Home Medications: Amoxicillin/Potassium Clav [Amox-Clav 875-125 mg Tablet] 1 each PO BID 10/11/23 Hydrocodone/Acetaminophen [Hydrocodone-Acetamin 5-325 mg] 1 tab PO Q6HP PRN 10/11/23 - Past Medical/Surgical History Diabetic: No -: Right hip fx -: right tonsillar ca -: hx of ETOH abuse -states he quit three months ago, denies hx of DTs -: right hip surgery Psychosocial/ Personal History: Single, lives alone, states Dr. Sierra diagnosed his tonsillar cancer. He receives radiation and chemo every Tuesday for the last 3 weeks - Social History Smoking Status: Unknown if ever smoked Alcohol use: Yes CD- Drugs: No Caffeine use: No Place of Residence: Home Review of Systems 10-point ROS is otherwise unremarkable Physical Examination Temp Pulse Resp BP Pulse Ox 98.1 F 79 18 113/72 100 11/10/23 10:13 11/10/23 10:13 11/10/23 10:13 11/10/23 10:13 11/10/23 10:13 General: Alert, In no apparent distress HEENT: Atraumatic, PERRLA, Mucous membr. moist/pink, EOMI, Sclerae nonicteric Neck: Supple, 2+ carotid pulse no bruit, No LAD, Without JVD or thyroid abnormality Respiratory: Clear to auscultation bilaterally, Normal air movement Cardiovascular: Edema, Irregular heart rate/rhythm Gastrointestinal: Normal bowel sounds, No tenderness Musculoskeletal: No tenderness Integumentary: No rashes Neurological: Normal gait, Normal speech, Normal tone, Normal affect Lymphatics: No axilla or inguinal lymphadenopathy Laboratory Data (last 24 hrs) 11/09/23 11/09/23 11/09/23 11:30 11:30 11:30 WBC 20.00 H Hgb 7.1 L Hct 22.3 L Plt Count 70 L PT 14.1 H INR 1.27 APTT 21.2 L Sodium 140 Potassium 4.1 BUN 102 H Creatinine 2.91 H Glucose 242 H Magnesium 2.7 H Total Bilirubin 0.6 AST 27 ALT 57 Alkaline Phosphatase 118 H Lipase 13 - Problems (1) Acute on chronic heart failure Current Visit: Yes Status: Acute Plan: patient with +2 BLE, which can be from CHF vs low albumin get echo agree with IV lasix 40 mg BID Give Albumin monitor input and output monitor and correct electrolytes. (2) Type 2 VA (myocardial infarction) Current Visit: Yes Status: Acute Plan: patient is not having chest pain, mild elak of troponin with no significant delta, most likely secondary to malnutrition, LORENE continue to monitor, get echo (3) Atrial fibrillation Current Visit: Yes Status: Acute Plan: New onset, patient is currently rate controlled, consider adding rate control medications once more stable Not on anticoagulation at this time due to low Hgb.
[2023-11-10] MEDS: EPOETIN ALFA-EPBX 10,000 UNIT/ML VIAL SQ SCH (12:00)
[2023-11-10] MEDS: KCL 20 MEQ/100 mL IVPB 20 MEQ/100 ML BAG IV SCH (12:00)
[2023-11-10] MEDS ORDERED: KCL 20 MEQ/100 mL IVPB 100 ML IV ONE (12:23)
[2023-11-10] MEDS ORDERED: NA CHLORIDE 0.9% 250 ML ONE ×2 (12:23→12:42)
--- NOTE | 2023-11-10 13:04 | ECHO ---
HEIGHT: 5 ft 9 in WEIGHT: 210 lb 0 oz DATE OF STUDY: 11/10/[address]: Giulia Shelley WAFER MOUNTER-BC 2-DIMENSIONAL: YES M.MODE: YES DOPPLER: YES COLOR FLOW: YES TDS: PORTABLE: YES DEFINITY: BUBBLE STUDY: DIAGNOSIS: CONGESTIVE HEART FAILURE CARDIAC HISTORY: CATHERIZATION: NO SURGERY: NO PROSTHETIC VALVE: NO PACEMAKER: NO MEASUREMENTS (cm) DIASTOLIC (NORMALS) SYSTOLIC (NORMALS) IVSd 1.4 (0.6-1.2) LA Diam 3.5 (1.9-4.0) LVEF 60-65% LVIDd 4.1 (3.5-5.7) LVIDs 2.8 (2.0-3.5) %FS 33% LVPWd 1.4 (0.6-1.2) Ao Diam 3.4 (2.0-3.7) 2 DIMENSIONAL ASSESSMENT: RIGHT ATRIUM: NORMAL LEFT ATRIUM: MILD DILATED RIGHT VENTRICLE: NORMAL LEFT VENTRICLE: NORMAL TRICUSPID VALVE: TRACE TRICUSPID REGURGITATION MITRAL VALVE: TRACE MITRAL REGURGITATION PULMONIC VALVE: NORMAL AORTIC VALVE: NORMAL PERICARDIAL EFFUSION: MILD CIRCUMFERENTIAL AORTIC ROOT: NORMAL LEFT VENTRICULAR WALL MOTION: NORMAL DOPPLER/COLOR FLOW: GRADE II DIASTOLIC DYSFUNCTION COMMENTS: 1. NORMAL LEFT VENTRICULAR SYSTOLIC FUNCTION, EJECTION FRACTION 60-65%, NORMAL WALL MOTION 2. GRADE II DIASTOLIC DYSFUNCTION 3. SMALL CIRCUMFERENTIAL PERICARDIAL EFFUSION TECHNOLOGIST: KEVIN PERRY
[2023-11-10 14:34] VITALS: O2SAT 100
[2023-11-10] MEDS: ATROPINE SULF 1 MG/10 ML SYR IV ONE (15:18)
--- NOTE | 2023-11-10 16:10 | CON ---
Date of Consultation: 11/10/2023 Reason For Consultation: Elevated BUN and creatinine, anasarca. History Of Present Illness: This is a 63-year-old gentleman with significant past medical history of tonsillar CA; AFib; congestive heart failure; chronic kidney disease, baseline creatinine 1.7, GFR of 34 as of September 2023. The patient recently has a port. The patient came to the hospital complaining of weakness and shortness of breath and anasarca. The patient had dysphagia. The patient denied taking any nonsteroid. The patient had increase in his leg swelling, found to have symptomatic anemia and AFib. Past Medical History: Includes: 1. AFib. 2. Hypertension. 3. Tonsillar CA. 4. Liver cirrhosis secondary to alcohol. Past Surgical History: Includes: 1. Right hip replacement. 2. Tonsil removal. 3. Hip surgery. Family History: Positive for hypertension. Social History: Active alcohol. Denied drugs abuse. Denied smoking. Allergies: NO KNOWN DRUG ALLERGY. Home Medications: Include Augmentin, hydrocodone. Review of Systems: Head and Neck: No red eye. No ear pain. GI: Has no nausea, no vomiting. : No polyuria, no dysuria. No hematuria. DOCTOR NATUROPATHIC: Not applicable. Respiratory: Has shortness of breath. Cardiovascular: Has leg swelling. Endocrine: No polydipsia. Physical Examination: Vital Signs: When I saw the patient, blood pressure 113/72, pulse of 79, afebrile. Chest: Decreased entry bilateral base. Heart: S1, S2. Systolic murmur. Abdomen: Soft, nontender. Extremities: +2 edema. Neurologic: Alert. No focality. Laboratory Data: Hemoglobin 8.7. Patient received 2 units of packed RBCs. Sodium 140, potassium 3.4, bicarb 23, BUN 99, creatinine 2.7. GFR of 26. Calcium 8.3. Ferritin 1518. Troponin 354. Assessment And Plan: 1. Acute kidney injury secondary to cardiorenal with anasarca. The patient is going to receive transfusion. Then, going to be diuresed. The anasarca looked to me more venous stasis. We will follow up diuresis. 2. Anemia of chronic kidney disease secondary to cancer. We will follow up after transfusion. We will give the patient a single dose of Retacrit. 3. Anasarca secondary possible to low albumin. I am going to send for protein, creatinine. 4. Hypothyroidism has been ruled out. We will follow up after the diuresis. 5. Chronic kidney disease with acute kidney injury secondary to cardiorenal, secondary to atrial fibrillation. We will follow up after rate controlled. I will hold on the diuresis after his current dosage after the transfusion and we will follow up. 6. Hypokalemia. We will supplement. We will check for his magnesium. Time spent examining the patient [id number] reviewing data lab and the radiology placing orders discussing the case with the patient discussing the case with the steam fitter supervisor maintenance including hospitalist and nursing staff more than 75 minutes RONNELL Voice ID: [id number] Report ID: [id number] GRUPO
[2023-11-10 19:09] LABS: Sqamous Epithelial <5 /HPF (None Seen); Urine Bacteria <20 /HPF (<20); Urine Bilirubin NEGATIVE (Negative); Urine Blood Negative (Negative); Urine Clarity Turbid (Clear); Urine Color Colorless (Yellow); Urine Culture Reflex Order NOT NEEDED; Urine Glucose NEGATIVE (Negative); Urine Ketones NEGATIVE (Negative); Urine Microscopic Reflex YN ORDER UMIC; Urine Nitrite NEGATIVE (Negative); Urine Protein NEGATIVE (Negative); Urine RBC <5 /HPF (None Seen); Urine Urobilinogen Normal (Normal)
[2023-11-10 19:36] LABS: UR PROTEIN 12.8 mg/dL (<11.9); Urine Protein/Creatinine Ratio 0.64 ratio (<0.15)
[2023-11-11 07:05] LABS: Absolute Lymphocytes (CBC) 0.2 K/uL (0.7-4.9); Absolute Monocytes 0.2 K/uL (0.1-1.3); Absolute Neutrophil 5.4 K/uL (1.8-8.0); Basophils % 0.1 % (0-1.3); Hematocrit 27.3 % (39.6-49.0); Hemoglobin 9.3 g/dL (13.6-17.9); Lymphocytes % 3.9 % (15.3-44.8); MCH 31.7 pg (27.0-35.0); MCV 93.2 fL (80-100); MPV 9.5 fL (7.6-11.3); Nucleated Red Blood Cells % 0.1 % (0-0); Platelets 46 thou/uL (152-406); RBC Red Blood Cell Count 2.93 M/uL (4.33-5.43); Red Cell Distribution Width 14.7 % (12.1-15.2)
[2023-11-11 07:22] LABS: Albumin 2.7 g/dL (3.4-5.0); Albumin/Globulin Ratio 0.9 (1.1-1.8); Anion Gap 8.2 mEq/L (5.0-15.0); Bilirubin Total 1.4 mg/dL (0.2-1.0); Globulin 2.9 g/dL (2.3-3.5); Magnesium 1.8 mg/dL (1.6-2.4); Potassium 3.2 mEq/L (3.5-5.1); Protein, Total 5.6 g/dL (6.4-8.2); Uric Acid 10.4 mg/dL (3.5-7.2)
[2023-11-11] MEDS: SUCRALFATE 1GM/10ML UCUP FT SCH (08:44)
[2023-11-11] MEDS: POTASSIUM CL SA 10 MEQ TAB PO ONE ×2 (09:00→11:00)
--- NOTE | 2023-11-11 09:14 | P.PN ---
Subjective Date of Service: 11/11/23 Primary Care Provider: none Chief Complaint: Swelling, weakness Subjective: Improving (continues with lower ex. edema, color improved) <Giulia Shelley - Last Filed: 11/11/23 09:08> Date of Service: 11/11/23 <Thania Treviño Nancy - Last Filed: 11/11/23 09:56> Review of Systems 10-point ROS is otherwise unremarkable General: Weakness, Malaise, As per HPI ENT: Throat Pain, Other (right tonsillar mass) Respiratory: As per HPI Cardiovascular: As per HPI <Giulia Shelley - Last Filed: 11/11/23 09:08> Physical Examination - Vital Signs Temperature: 97 F Blood Pressure: 99/61 Pulse: 64 Respirations: 13 Pulse Ox (%): 100 - Physical Exam General: Alert, Oriented x3, Mild distress HEENT: Atraumatic, Normocephalic, Other (right tonsillar mass, dysphagia) Neck: Supple Respiratory: Normal air movement Cardiovascular: Irregular heart rate/rhythm Capillary refill: <2 Seconds Gastrointestinal: Soft and benign Musculoskeletal: No clubbing Integumentary: Other (color improved from 11/10/23) Neurological: Normal affect, Abnormal speech, Abnormal tone Lymphatics: No axilla or inguinal lymphadenopathy External genitalia: Deferred Rectal: Deferred <Giulia Shelley - Last Filed: 11/11/23 09:08> Assessment And Plan - Plan Anemia - acute blood loss/petechiae 2units PRBC, serial H/H - 11/11/23 H/H improved to 9.3/27.3 haptogen level monitor and trend CHF with LORENE Echocardiogram preserved EF Beta-may Cardiology consultation - Dr. Ledesma following Nephrology consultation - Dr. Carrillo following Aggressive diuresis/lasix 40mg IV BID albumin iV x 1 given 11/10/23 creatinine improved 2.91 (11/08) to 1.94 (11/10) Strict Is & Os Daily weight Atrial fibrillation: Metoprolol for rate control Anticoagulation - heparin cautiously - bleeding/petechia/anemia Echocardiogram TSH Cardiology consultation Throat ca - radiation Hoarse, weak voice keep HOB up 30 degrees (has been getting chemo and radiation q Tuesday x 3) Nutrition/Hypoalbuminemia - 11/10/23 albumin 25gm IV Pain Morphine 4mg q4h prn nausea control prn viscous lidocaine prn Leukocytosis UA/UC/Blood cultures Cefepime PSA VTE/GI prophylaxis SCD, heparin/Protonix <Giulia Shelley - Last Filed: 11/11/23 09:08> - Plan Pt seen and examined. I agree with the note by the CARDIAC CATH TECHNOLOGIST. Hgb is 9.3 <- 8.7 after 2 units of blood. Continue lasix 40mg iv BID. Consulted Cardiology for elevated troponin. F/u Echo. Continue telemetry, metoprolol and heparin drip. Monitor H/H. Will replete potassium. <Thania Treviño - Last Filed: 11/11/23 09:56>
[2023-11-11] MEDS: KCL 20 MEQ/100 mL IVPB 20 MEQ/100 ML BAG IV SCH (12:12)
[2023-11-11] MEDS: NA CHLORIDE 0.9% 250 ML ONE (12:12)
--- NOTE | 2023-11-11 13:37 | EKG ---
Test Date: 2023-11-09 Test Time: 12:01:44 Clinical Psychologist Licensed: DEBBIE MEASUREMENT RESULTS: Intervals: Rate: 83 VT: QRSD: 92 QT: 396 QTc: 465 [place]: P: VT: QRS: 8 T: 213 INTERPRETIVE STATEMENTS: Atrial fibrillation T wave abnormality, consider inferior ischemia Prolonged QT Abnormal ECG Compared to ECG 10/11/2023 09:11:32 T-wave abnormality now present Possible ischemia now present Prolonged QT interval now present Sinus rhythm no longer present Atrial premature complex(es) no longer present Electronically Signed On 11-11-23 13:32:20 CDT by Maxwell Perez
[2023-11-11] MEDS: AMIODARONE HCL 900 MG in Dextrose 5%-Water 482 ML IV SCH (15:50)
[2023-11-11] MEDS: AMIODARONE HCL 150 MG in D5W 100 ML IV STA (15:51)
[2023-11-11] MEDS: ENSURE MAX PROTEIN 330 ML LIQUID PO SCH (20:19)
--- NOTE | 2023-11-11 20:22 | PN ---
Date of Progress Note: 11/11/2023 Subjective: Seen by bedside. He is generally very weak. Review of Systems: No chest pain, shortness of breath, orthopnea, cough. No nausea, vomiting, diarrhea. All other syst ems reviewed are negative. Physical Examination: Vital Signs: Reviewed. Head and Neck: Pupils are equal, reactive to light. Intact eye movements. No JVD. No cervical lym phadenopathy. Neck is supple. Thyroid is not enlarged. Lungs: Decreased breathing sounds. No accessory muscle use or muscle retraction. Heart: Irregularly irregular. No extra sounds. Abdomen: Soft, nontender. Bowel sounds positive. No organomegaly. No masses or hernia. No rigidi ty or rebound. Extremities: No edema, clubbing, or cyanosis. Intact pulses. Skin: No rash. Neurologic: Alert, awake, oriented x3. No acute focal deficits appreciated. Investigations: BUN is 70; creatinine is 1.94, improving from 2.9, and his white blood cell count is 5.9 and hemoglobin is 9.3. Assessment/recommendations: 1.Atrial fibrillation. Rate is close to be high. Start him on IV amiodarone drip and discontinue m etoprolol. He will need stroke prevention, but he is not a candidate for anticoagulation due to butch re anemia. He will be a candidate for bandage closure at a later time. 2.Acute on chronic congestive heart failure exacerbation, on Lasix, doing well. Continue current ma nagement. Carefully monitor BUN, creatinine, electrolytes. 3.Acute renal failure due to the elevated central venous pressure, improving with Lasix. Continue c urrent management. SR/MODL Voice ID: [id number] Report ID: [id number]
--- NOTE | 2023-11-11 23:44 | CON ---
Date of Consultation: 11/11/2023 Nephrology consultation is requested for fluid overload, anasarca, elevated BUN and creatinine, acute on chronic kidney injury. The patient is a 63-year-old man with past medical history significant for tonsillar cancer, atrial fibrillation, congestive heart failure, chronic kidney disease, baseline creatinine level as of September 2023. The patient came to the hospital because of shortness of breath, anasarca. He denied taking any nonsteroidal antiinflammatory medication. Patient has increased leg swelling. He became symptomatic with shortness of breath. He was found to have anemia and atrial fibrillation. Past Medical History: Atrial fibrillation, chronic kidney disease stage 3, liver cirrhosis, tonsillar cancer, hypertension. Past Surgical History: Right hip replacement, tonsil removal, hip surgery. Review of Systems: Eyes: Denies vision changes. Ears, Nose, and Throat: Denies sore throat, earache. Respiratory: Has shortness of breath chronic. Cardiovascular: Denies chest pain, syncope. Has leg edema. : Denies dysuria, hematuria. All other systems reviewed and all are negative. Physical Examination: Chest: Equal chest expansion. Decreased air entry bilaterally. Few crackles. Heart: S1, S2. 2/6 systolic murmur, left lower sternal border. Abdomen: Soft, nontender. Extremities: 2+ to 3+ edema. Laboratory Data: Hemoglobin 8.7. Sodium 140, potassium 3.4, bicarb 23, BUN 99, creatinine 2.7, GFR 26, calcium 8.3. Troponin 354. Impression And Plan: 1. Acute kidney injury secondary to cardiorenal syndrome with anasarca. The patient was found to have anemia and he is getting transfusion. Patient to continue low-sodium diet and diuretic. 2. Anemia of chronic kidney disease as well as secondary to cancer. The patient is to have blood transfusion. 3. Anasarca in setting of hypoalbuminemia. . 4. Chronic kidney disease with acute kidney injury secondary to cardiorenal, secondary to atrial fibrillation. Diuretic on hold due to unstable blood pressure. Monitor blood pressure. 5. Hypokalemia. Supplementation as needed. Check magnesium level. 6. Atrial fibrillation with borderline hypotension. Monitor blood pressure. Plan to start midodrine as needed. EB/MODL Voice ID: [id number] Report ID: [id number] GRUPO
[2023-11-12] MEDS: NA CHLORIDE 0.9% 250 ML ONE ×3 (01:07→16:14)
[2023-11-12] MEDS: KCL 20 MEQ/100 mL IVPB 20 MEQ/100 ML BAG IV SCH (01:13)
[2023-11-12] MEDS: POTASSIUM CL SA 10 MEQ TAB PO SCH (08:00)
[2023-11-12 08:26] LABS: Albumin 2.2 g/dL (3.4-5.0); Anion Gap 10.7 mEq/L (5.0-15.0); Phosphorus 1.8 mg/dL (2.5-4.9); Potassium 3.7 mEq/L (3.5-5.1)
[2023-11-12] MEDS: LIDOCAINE VISCOUS 2% 10ML ORAL SOLN PO PRN (09:06)
[2023-11-12 09:17] LABS: Absolute Lymphocytes (CBC) 0.4 K/uL (0.7-4.9); Absolute Monocytes 0.5 K/uL (0.1-1.3); Absolute Neutrophil 7.4 K/uL (1.8-8.0); Basophils % 0.1 % (0-1.3); Eosinophils % 0.3 % (0-4.4); Hematocrit 21.8 % (39.6-49.0); Hemoglobin 7.2 g/dL (13.6-17.9); Lymphocytes % 5.2 % (15.3-44.8); MCH 31.4 pg (27.0-35.0); MCV 95.3 fL (80-100); MPV 10.6 fL (7.6-11.3); Monocytes % 6.3 % (3.3-12.3); Neutrophils % 88.1 % (41.7-73.7); Nucleated Red Blood Cells % 0.1 % (0-0); Platelets 62 thou/uL (152-406); RBC Red Blood Cell Count 2.29 M/uL (4.33-5.43); Red Cell Distribution Width 14.7 % (12.1-15.2)
[2023-11-12] MEDS: ALBUMIN HUMAN 25% 12.5 GM, FUROSEMIDE 100 MG in NA CHLORIDE 0.9% 40 ML IV SCH ×2 (11:00→18:22)
[2023-11-12] MEDS: ALBUMIN HUMAN 25% 0 ML IV ONE (12:03)
[2023-11-12] MEDS: EPOETIN ALFA-EPBX 10,000 UNIT/ML VIAL SQ SCH (12:30)
--- NOTE | 2023-11-12 16:15 | P.DS ---
Admission Date: 11/09/23 Discharge Date: 11/12/23 Primary Care Provider: none Comment: Transfer pending IMU bed Reason for Admission: Swelling, weakness Consultations: Dr. Ledesma/Dr. Perez (cardiology) Dr. Carrillo (nephrology) Procedures: None Brief History of Present Illness: Mr. Beckham is a 63-year-old gentleman who does not frequent a primary care physician. He is a rather poor historian . He was recently diagnosed with a right tonsillar squamous cell [id number] positive and has been undergoing chemo and radiation treatments every Tuesday for the past 3 weeks. Thus his voice is weak, mildly difficult to understand, without airway compromise. He presented to the emergency department today with a complaint of weakness, admits to a fall yesterday (11/08/2023). On exam he is a pale, disheveled, alert gentleman with pitting edema/anasarca, and scattered petechiae. He is noted to have an irregularly irregular rhythm with tachycardia. He states yesterday he just "swole up". He admits to mild dysphagia and has been taking clear to full liquids. He denies fever, nausea, vomiting, gingival bleeding, or black stools. He denies ever smoking; however, he did drink daily but states he quit 3 months ago and denies ever having DTs. We will admit him for aggressive diuresis, packed red blood cells, rate control of A-fib, echocardiogram, serial H&H's, and consultation to both cardiology and nephrology. Hospital Course: Mr. Beckham was found to be quite anemic at 7.2 there was some question if this was delutional secondary to lower extremity edema/anasarca. As he had not been tolerating meals well his albumin was low at 2.7, and as he had no PCP, there was no record of any timely echo to this evaluate his EF. He was given albumin IV and 40 of Lasix IV twice daily. Secondary to his history of alcohol abuse and a platelet count of 70, he was also given 2 units of packed red blood cells. Repeat H&H 9.6 and 27.3. He initially responded pretty well to the diuresis, and had an improved creatinine from 2.91 to 1.94. However he remained in variable rate A-fib. As his platelets remain low, down to 46, and he exhibited petechiae in his upper extremities, heparin was initially held. After initial diuresis and increased ability, variable rate in A-fib was treated with an amiodarone drip. Mr. Beckham did not respond well with an increase in rate into the 150s and down to the 30s. Amiodarone was discontinued and cardiology was notified. Dr. Perez requested the patient be transferred for placement of a pacemaker. Transfer was initiated. Mr. Beckham has a pending IMU bed but his case will need to be discussed with Cardiology at [facility] prior to transfer. 11/12/23 continue to await IMU bed. Mr. Beckham appears fatigued, pale, and remains in A-fib from a rate of 35 to a rate of 157 but does has decreased edema. He had a drop in his hemoglobin again today to 7.2 with platelets of 62. Continue to hold heparin and will transfuse 2 more units of packed RBCs. Blood pressure remains soft but maintains a MAP in the 60s with midodrine. (Currently 99/56) <Giulia Shelley - Last Filed: 11/12/23 16:01> Admission Date: 11/09/23 Discharge Date: 11/13/23 Hospital Course: Pt seen and examined. I agree with the note by the BILLET CHECKER. Hgb is 7.2 <- 9.3 <- 8.7 after 2 units of blood. Will give 2 more units of blood. Continue lasix 40mg iv BID. Consulted Cardiology for elevated troponin. Hold heparin due to thrombocytopenia and anemia. F/u Echo. Continue telemetry, metoprolol and heparin drip. Monitor H/H. Will replete potassium. Waiting for transfer. Ok to transfer pt once a bed becomes available. <Thania Treviño - Last Filed: 11/13/23 11:09> Discharge Condition: FAIR Vital Signs/Physical Exam: Temp Pulse Resp BP Pulse Ox 98.1 F 59 13 99/56 L 100 11/12/23 12:00 11/12/23 15:00 11/12/23 15:00 11/12/23 15:00 11/12/23 15:00 Laboratory Data at Discharge: WBC 8.40 thou/uL (4.3-10.9) 11/12/23 09:05 Hgb 7.2 g/dL (13.6-17.9) L D 11/12/23 09:05 Hct 21.8 % (39.6-49.0) L 11/12/23 09:05 Plt Count 62 thou/uL (152-406) L D 11/12/23 09:05 PT 13.5 SECONDS (9.4-12.5) H 11/10/23 04:57 INR 1.21 11/10/23 04:57 APTT 21.2 SECONDS (24.3-36.9) L 11/09/23 11:30 Sodium 141 mEq/L (136-145) 11/12/23 07:55 Potassium 3.7 mEq/L (3.5-5.1) D 11/12/23 07:55 BUN 82 mg/dL (7-18) H 11/12/23 07:55 Creatinine 1.69 mg/dL (0.70-1.30) H 11/12/23 07:55 Glucose 186 mg/dL (74-106) H 11/12/23 07:55 Uric Acid 10.4 mg/dL (3.5-7.2) H 11/11/23 06:47 Phosphorus 1.8 mg/dL (2.5-4.9) L 11/12/23 07:55 Magnesium 2.0 mg/dL (1.6-2.4) 11/12/23 07:55 Total Bilirubin Cancelled 11/12/23 04:00 AST Cancelled 11/12/23 04:00 ALT Cancelled 11/12/23 04:00 Alkaline Phosphatase Cancelled 11/12/23 04:00 Triglycerides 128 mg/dL (<150) 11/10/23 04:57 Cholesterol 117 mg/dL (<200) 11/10/23 04:57 HDL Cholesterol 49 mg/dL (40-60) 11/10/23 04:57 Cholesterol/HDL Ratio 2.39 11/10/23 04:57 Lipase 13 U/L (13-75) 11/09/23 11:30 <Shelley,Giulia Myron - Last Filed: 11/12/23 16:01> Vital Signs/Physical Exam: Temp Pulse Resp BP Pulse Ox 97.4 F 43 L 12 95/70 100 11/13/23 07:00 11/13/23 10:00 11/13/23 10:00 11/13/23 10:00 11/13/23 10:00 Laboratory Data at Discharge: WBC 8.00 thou/uL (4.3-10.9) 11/13/23 05:07 Hgb 8.9 g/dL (13.6-17.9) L D 11/13/23 05:07 Hct 26.7 % (39.6-49.0) L 11/13/23 05:07 Plt Count 85 thou/uL (152-406) L D 11/13/23 05:07 PT 13.5 SECONDS (9.4-12.5) H 11/10/23 04:57 INR 1.21 11/10/23 04:57 APTT 21.2 SECONDS (24.3-36.9) L 11/09/23 11:30 Sodium 142 mEq/L (136-145) 11/13/23 05:14 Potassium 2.8 mEq/L (3.5-5.1) L D 11/13/23 05:14 BUN 74 mg/dL (7-18) H 11/13/23 05:14 Creatinine 1.87 mg/dL (0.70-1.30) H 11/13/23 05:14 Glucose 187 mg/dL (74-106) H 11/13/23 05:14 Uric Acid 10.4 mg/dL (3.5-7.2) H 11/11/23 06:47 Phosphorus 2.4 mg/dL (2.5-4.9) L 11/13/23 05:14 Magnesium 1.6 mg/dL (1.6-2.4) 11/13/23 05:14 Total Bilirubin Cancelled 11/13/23 04:00 AST Cancelled 11/13/23 04:00 ALT Cancelled 11/13/23 04:00 Alkaline Phosphatase Cancelled 11/13/23 04:00 Triglycerides 128 mg/dL (<150) 11/10/23 04:57 Cholesterol 117 mg/dL (<200) 11/10/23 04:57 HDL Cholesterol 49 mg/dL (40-60) 11/10/23 04:57 Cholesterol/HDL Ratio 2.39 11/10/23 04:57 Lipase 13 U/L (13-75) 11/09/23 11:30 <Thania Treviño - Last Filed: 11/13/23 11:09> <Giulia Shelley - Last Filed: 11/12/23 16:01> <Thania Treviño - Last Filed: 11/13/23 11:09> Home Medications: Dexamethasone [Dextenza] 0.4 mg OP SEECOM 11/11/23 Hydrocodone 5/APAP 325 [[place] 5/325] 1 tab PO TIDP PRN 11/11/23 Followup: NONE,NONE [Primary Care Provider] -
--- NOTE | 2023-11-12 16:31 | PN ---
Date of Progress Note: 11/12/2023 Subjective: The patient was admitted to the hospital with acute kidney injury with UTI. The patient has tonsil CA. The patient received blood transfusion with symptomatic anemia. Blood pressure is still on the lower side. Physical Examination: Vital Signs: Blood pressure 86/50, pulse of 77. Chest: Clear to auscultation. Heart: S1, S2. Regular. Abdomen: Soft, nontender. Extremities: Trace edema. Neuro: Alert. No focality. Laboratory Data: WBC 8.4, hemoglobin 7.2. Sodium 141, potassium 3.7, bicarb 24, BUN 82, creatinine down to 1.6. GFR 45. Calcium 8.1. Phosphorus 1.8, magnesium of 2. Albumin 2.2. Corrected calcium 9.5. Current Medications: The patient is on include: 1. Cefepime. 2. Lasix drip. 3. Amiodarone. 4. Pantoprazole. 5. Carafate. Assessment And Plan: 1. Acute kidney injury secondary to cardiorenal with anasarca. On the recovery, had good urine output. Negative of 2 L. I am going to continue diuresing the patient and we will follow up. We will decrease the Lasix drip to 10 mg. 2. Hypertension, currently blood pressure on the lower side. I am going to start the patient on midodrine and we will follow up the patient. 3. Hypokalemia, hypophosphatemia. We will supplement. 4. Cardiogenic shock complicated with acute kidney injury secondary to cardiorenal as above. We will continue diuresis. 5. Anemia, status post transfusion. We will follow up the patient. I will give the patient a single dose of Retacrit. 6. Congestive heart failure with exacerbation as above. Time spent examining the patient [id number] reviewing data lab and the radiology placing orders discussing the case with the patient discussing the case with the steam roller operator including hospitalist and nursing staff more than 55 minutes RONNELL Voice ID: [id number] Report ID: [id number]
[2023-11-12] MEDS: POTASSIUM PHOS IN 0.9 % NACL 15 MMOL/250 ML BAG IV ONE (18:22)
[2023-11-12] MEDS: MIDODRINE HCL 5 MG TABLET PO SCH (21:17)
[2023-11-13 06:21] LABS: Albumin 2.5 g/dL (3.4-5.0); Anion Gap 11.8 mEq/L (5.0-15.0); Magnesium 1.6 mg/dL (1.6-2.4); Phosphorus 2.4 mg/dL (2.5-4.9); Potassium 2.8 mEq/L (3.5-5.1)
[2023-11-13 06:43] LABS: Absolute Lymphocytes (CBC) 0.5 K/uL (0.7-4.9); Absolute Monocytes 0.7 K/uL (0.1-1.3); Absolute Neutrophil 6.9 K/uL (1.8-8.0); Eosinophils % 0.5 % (0-4.4); Hematocrit 26.7 % (39.6-49.0); Hemoglobin 8.9 g/dL (13.6-17.9); Lymphocytes % 6.1 % (15.3-44.8); MCH 30.4 pg (27.0-35.0); MCHC 33.6 g/dL (32.0-36.0); MCV 90.5 fL (80-100); MPV 9.8 fL (7.6-11.3); Monocytes % 8.1 % (3.3-12.3); Neutrophils % 85.3 % (41.7-73.7); Nucleated Red Blood Cells % 0.1 % (0-0); Platelets 85 thou/uL (152-406); RBC Red Blood Cell Count 2.95 M/uL (4.33-5.43); Red Cell Distribution Width 16.4 % (12.1-15.2)
[2023-11-13 07:24] LABS: Platelet Estimate DECR; White Blood Cell Scan OK (OK)
[2023-11-13 07:25] LABS: Blood Morphology Comment NOT SEEN (NOT SEEN)
[2023-11-13] MEDS: POTASSIUM CL SA 10 MEQ TAB PO ONE ×2 (08:29→11:29)
[2023-11-13] MEDS: KCL 20 MEQ/100 mL IVPB 20 MEQ/100 ML BAG IV SCH ×2 (08:30→12:30)
[2023-11-13] MEDS: Magnesium Sulfate 2gm IVPB 2 G/50 ML BAG IV ONE ×2 (08:30→12:31)
--- NOTE | 2023-11-13 09:19 | P.PN ---
Date of Service: 11/12/23 Please use discharge summary for progress note, pt was holding for transfer but was not transferred Comment: Transfer pending IMU bed Discharge Condition: FAIR Reason for Admission: Swelling, weakness Consultations: Dr. Ledesma/Dr. Perez (cardiology) Dr. Carrillo (nephrology) Procedures: None Brief History of Present Illness: Mr. Beckham is a 63-year-old gentleman who does not frequent a primary care physician. He is a rather poor historian . 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 Thus his voice is weak, mildly difficult to understand, without airway compromise. He presented to the emergency department today with a complaint of weakness, admits to a fall yesterday (11/08/2023). On exam he is a pale, disheveled, alert gentleman with pitting edema/anasarca, and scattered petechiae. He is noted to have an irregularly irregular rhythm with tachycardia. He states yesterday he just "swole up". He admits to mild dysphagia and has been taking clear to full liquids. He denies fever, nausea, vomiting, gingival bleeding, or black stools. He denies ever smoking; however, he did drink daily but states he quit 3 months ago and denies ever having DTs. We will admit him for aggressive diuresis, packed red blood cells, rate control of A-fib, echocardiogram, serial H&H's, and consultation to both cardiology and nephrology. Hospital Course: Mr. Beckham was found to be quite anemic at 7.2 there was some question if this was delutional secondary to lower extremity edema/anasarca. As he had not been tolerating meals well his albumin was low at 2.7, and as he had no PCP, there was no record of any timely echo to this evaluate his EF. He was given albumin IV and 40 of Lasix IV twice daily. Secondary to his history of alcohol abuse and a platelet count of 70, he was also given 2 units of packed red blood cells. Repeat H&H 9.6 and 27.3. He initially responded pretty well to the diuresis, and had an improved creatinine from 2.91 to 1.94. However he remained in variable rate A-fib. As his platelets remain low, down to 46, and he exhibited petechiae in his upper extremities, heparin was initially held. After initial diuresis and increased ability, variable rate in A-fib was treated with an amiodarone drip. Mr. Beckham did not respond well with an increase in rate into the 150s and down to the 30s. Amiodarone was discontinued and cardiology was notified. Dr. Perez requested the patient be transferred for placement of a pacemaker. Transfer was initiated. Mr. Beckham has a pending IMU bed but his case will need to be discussed with Cardiology at [facility] prior to transfer. 11/12/23 continue to await IMU bed. Mr. Beckham appears fatigued, pale, and remains in A-fib from a rate of 35 to a rate of 157 but does has decreased edema. He had a drop in his hemoglobin again today to 7.2 with platelets of 62. Continue to hold heparin and will transfuse 2 more units of packed RBCs. Blood pressure remains soft but maintains a MAP in the 60s with midodrine. (Currently 99/56) Vital Signs/Physical Exam: Temp Pulse Resp BP Pulse Ox 98.1 F 59 13 99/56 L 100 11/12/23 12:00 11/12/23 15:00 11/12/23 15:00 11/12/23 15:00 11/12/23 15:00 Laboratory Data at Discharge: WBC 8.40 thou/uL (4.3-10.9) 11/12/23 09:05 Hgb 7.2 g/dL (13.6-17.9) L D 11/12/23 09:05 Hct 21.8 % (39.6-49.0) L 11/12/23 09:05 Plt Count 62 thou/uL (152-406) L D 11/12/23 09:05 PT 13.5 SECONDS (9.4-12.5) H 11/10/23 04:57 INR 1.21 11/10/23 04:57 APTT 21.2 SECONDS (24.3-36.9) L 11/09/23 11:30 Sodium 141 mEq/L (136-145) 11/12/23 07:55 Potassium 3.7 mEq/L (3.5-5.1) D 11/12/23 07:55 BUN 82 mg/dL (7-18) H 11/12/23 07:55 Creatinine 1.69 mg/dL (0.70-1.30) H 11/12/23 07:55 Glucose 186 mg/dL (74-106) H 11/12/23 07:55 Uric Acid 10.4 mg/dL (3.5-7.2) H 11/11/23 06:47 Phosphorus 1.8 mg/dL (2.5-4.9) L 11/12/23 07:55 Magnesium 2.0 mg/dL (1.6-2.4) 11/12/23 07:55 Total Bilirubin Cancelled 11/12/23 04:00 AST Cancelled 11/12/23 04:00 ALT Cancelled 11/12/23 04:00 Alkaline Phosphatase Cancelled 11/12/23 04:00 Triglycerides 128 mg/dL (<150) 11/10/23 04:57 Cholesterol 117 mg/dL (<200) 11/10/23 04:57 HDL Cholesterol 49 mg/dL (40-60) 11/10/23 04:57 Cholesterol/HDL Ratio 2.39 11/10/23 04:57 Lipase 13 U/L (13-75) 11/09/23 11:30 - Physical Exam General: Alert, Oriented x3, Mild distress HEENT: Atraumatic, Normocephalic, Other (right tonsillar mass, dysphagia) Neck: Supple Respiratory: Normal air movement Cardiovascular: Irregular heart rate/rhythm Capillary refill: <2 Seconds Gastrointestinal: Soft and benign Musculoskeletal: No clubbing Integumentary: Other (color improved from 11/10/23) Neurological: Normal affect, Abnormal speech, Abnormal tone Lymphatics: No axilla or inguinal lymphadenopathy External genitalia: Deferred Rectal: Deferred Assessment And Plan - Plan Anemia - acute blood loss/petechiae 2units PRBC, serial H/H - 11/11/23 H/H improved to 9.3/27.3 haptogen level monitor and trend CHF with LORENE Echocardiogram preserved EF Beta-may Cardiology consultation - Dr. Ledesma following Nephrology consultation - Dr. Carrillo following Aggressive diuresis/lasix 40mg IV BID albumin IV x 1 given 11/10/23 Albumin /lasix drip initiated creatinine improved 2.91 (11/08) to 1.94 (11/10) Strict Is & Os Daily weight Atrial fibrillation: Metoprolol for rate control - pt has had soft blood pressures and episodes of bradycardia to 35bpm Amiodarone drip started but had to be stopped for worsening pt s/s Anticoagulation - heparin cautiously - bleeding/petechia/anemia Echocardiogram - EF preserved TSH Cardiology following - requested transfer yesterday (11/11/23) for pacemaker. No bed availability so far Throat ca - radiation Hoarse, weak voice keep HOB up 30 degrees (has been getting chemo and radiation q Tuesday x 3) added viscous lidocaine and carafate Nutrition/Hypoalbuminemia - 11/10/23 albumin 25gm IV 11/10 albumin/lasix drip initiated Pain Morphine 4mg q4h prn nausea control prn viscous lidocaine prn Leukocytosis UA/UC/Blood cultures 11/11/22 so far cultures negative Cefepime PSA - within normal VTE/GI prophylaxis SCD, heparin/Protonix Home Medications: Dexamethasone [Dextenza] 0.4 mg OP SEECOM 11/11/23 Hydrocodone 5/APAP 325 [[place] 5/325] 1 tab PO TIDP PRN 11/11/23 <Giulia Shelley - Last Filed: 11/13/23 09:21> Pt seen and examined. I agree with the note by the RECORDING ENGINEER. Hgb is 8.9<- 7.2 <- 9.3 <- 8.7 after 4 units of blood. Continue lasix 40mg iv BID. Consulted Cardiology for elevated troponin. Hold heparin due to thrombocytopenia and anemia. F/u Echo. Continue telemetry, metoprolol and heparin drip. Monitor H/H. Will replete potassium. Waiting for transfer. Ok to transfer pt once a bed becomes available. <Thania Treviño - Last Filed: 11/13/23 11:10>
--- NOTE | 2023-11-13 09:29 | P.PN ---
Please use discharge summary for progress note, pt was holding for transfer but was not transferred Comment: Transfer pending IMU bed Discharge Condition: FAIR Reason for Admission: Swelling, weakness Consultations: Dr. Ledesma/Dr. Perez (cardiology) Dr. Carrillo (nephrology) Procedures: None Brief History of Present Illness: Mr. Beckham is a 63-year-old gentleman who does not frequent a primary care physician. He is a rather poor historian . 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 Thus his voice is weak, mildly difficult to understand, without airway compromise. He presented to the emergency department today with a complaint of weakness, admits to a fall yesterday (11/08/2023). On exam he is a pale, disheveled, alert gentleman with pitting edema/anasarca, and scattered petechiae. He is noted to have an irregularly irregular rhythm with tachycardia. He states yesterday he just "swole up". He admits to mild dysphagia and has been taking clear to full liquids. He denies fever, nausea, vomiting, gingival bleeding, or black stools. He denies ever smoking; however, he did drink daily but states he quit 3 months ago and denies ever having DTs. We will admit him for aggressive diuresis, packed red blood cells, rate control of A-fib, echocardiogram, serial H&H's, and consultation to both cardiology and nephrology. Hospital Course: Mr. Beckham was found to be quite anemic at 7.2 there was some question if this was dilutional secondary to lower extremity edema/anasarca. As he had not been tolerating meals well his albumin was low at 2.7, and as he had no PCP, there was no record of any timely echo to this evaluate his EF. He was given albumin IV and 40 of Lasix IV twice daily. Secondary to his history of alcohol abuse and a platelet count of 70, he was also given 2 units of packed red blood cells. Repeat H&H 9.6 and 27.3. He initially responded pretty well to the diuresis, and had an improved creatinine from 2.91 to 1.94. However he remained in variable rate A-fib. As his platelets remain low, down to 46, and he exhibited petechiae in his upper extremities, heparin was initially held. After initial diuresis and increased ability, variable rate in A-fib was treated with an amiodarone drip. Mr. Beckham did not respond well with an increase in rate into the 150s and down to the 30s. Amiodarone was discontinued and cardiology was notified. Dr. Perez requested the patient be transferred for placement of a pacemaker. Transfer was initiated. Mr. Beckham has a pending IMU bed but his case will need to be discussed with Cardiology at [facility] prior to transfer. 11/12/23 continue to await IMU bed. Mr. Beckham appears fatigued, pale, and remains in A-fib from a rate of 35 to a rate of 157 but does has decreased edema. He had a drop in his hemoglobin again today to 7.2 with platelets of 62. Continue to hold heparin and will transfuse 2 more units of packed RBCs. Blood pressure remains soft but maintains a MAP in the 60s with midodrine. (Currently 99/56) Vital Signs/Physical Exam: Temp Pulse Resp BP Pulse Ox 98.1 F 59 13 99/56 L 100 11/12/23 12:00 11/12/23 15:00 11/12/23 15:00 11/12/23 15:00 11/12/23 15:00 Laboratory Data at Discharge: WBC 8.40 thou/uL (4.3-10.9) 11/12/23 09:05 Hgb 7.2 g/dL (13.6-17.9) L D 11/12/23 09:05 Hct 21.8 % (39.6-49.0) L 11/12/23 09:05 Plt Count 62 thou/uL (152-406) L D 11/12/23 09:05 PT 13.5 SECONDS (9.4-12.5) H 11/10/23 04:57 INR 1.21 11/10/23 04:57 APTT 21.2 SECONDS (24.3-36.9) L 11/09/23 11:30 Sodium 141 mEq/L (136-145) 11/12/23 07:55 Potassium 3.7 mEq/L (3.5-5.1) D 11/12/23 07:55 BUN 82 mg/dL (7-18) H 11/12/23 07:55 Creatinine 1.69 mg/dL (0.70-1.30) H 11/12/23 07:55 Glucose 186 mg/dL (74-106) H 11/12/23 07:55 Uric Acid 10.4 mg/dL (3.5-7.2) H 11/11/23 06:47 Phosphorus 1.8 mg/dL (2.5-4.9) L 11/12/23 07:55 Magnesium 2.0 mg/dL (1.6-2.4) 11/12/23 07:55 Total Bilirubin Cancelled 11/12/23 04:00 AST Cancelled 11/12/23 04:00 ALT Cancelled 11/12/23 04:00 Alkaline Phosphatase Cancelled 11/12/23 04:00 Triglycerides 128 mg/dL (<150) 11/10/23 04:57 Cholesterol 117 mg/dL (<200) 11/10/23 04:57 HDL Cholesterol 49 mg/dL (40-60) 11/10/23 04:57 Cholesterol/HDL Ratio 2.39 11/10/23 04:57 Lipase 13 U/L (13-75) 11/09/23 11:30 - Physical Exam General: Alert, Oriented x3, Mild distress HEENT: Atraumatic, Normocephalic, Other (right tonsillar mass, dysphagia) Neck: Supple Respiratory: Normal air movement Cardiovascular: Irregular heart rate/rhythm Capillary refill: <2 Seconds Gastrointestinal: Soft and benign Musculoskeletal: No clubbing Integumentary: Other (color improved from 11/10/23) Neurological: Normal affect, Abnormal speech, Abnormal tone Lymphatics: No axilla or inguinal lymphadenopathy External genitalia: Deferred Rectal: Deferred Assessment And Plan - Plan Anemia - acute blood loss/petechiae 2units PRBC, serial H/H - 11/11/23 H/H improved to 9.3/27.3 haptogen level monitor and trend CHF with LORENE Echocardiogram preserved EF Beta-may Cardiology consultation - Dr. Ledesma following Nephrology consultation - Dr. Carrillo following Aggressive diuresis/lasix 40mg IV BID albumin IV x 1 given 11/10/23 Albumin /lasix drip initiated creatinine improved 2.91 (11/08) to 1.94 (11/10) Strict Is & Os Daily weight Atrial fibrillation: Metoprolol for rate control - pt has had soft blood pressures and episodes of bradycardia to 35bpm Amiodarone drip started but had to be stopped for worsening pt s/s Anticoagulation - heparin cautiously - bleeding/petechia/anemia Echocardiogram - EF preserved TSH Cardiology following - requested transfer yesterday (11/11/23) for pacemaker. No bed availability so far Throat ca - radiation Hoarse, weak voice keep HOB up 30 degrees (has been getting chemo and radiation q Tuesday x 3) added viscous lidocaine and carafate Nutrition/Hypoalbuminemia - 11/10/23 albumin 25gm IV 11/10 albumin/lasix drip initiated Pain Morphine 4mg q4h prn nausea control prn viscous lidocaine prn Leukocytosis UA/UC/Blood cultures 11/11/22 so far cultures negative Cefepime PSA - within normal VTE/GI prophylaxis SCD, heparin/Protonix <Giulia Shelley - Last Filed: 11/13/23 09:27> Pt seen and examined. I agree with the note by the FLAT SCREEN WORKER. Hgb is 7.2 <- 9.3 <- 8.7 after 2 units of blood. Will give 2 more units of blood. Continue lasix 40mg iv BID. Consulted Cardiology for elevated troponin. F/u Echo. Continue telemetry, metoprolol and heparin drip. Monitor H/H. Will replete potassium. Waiting for transfer. <Thania Treviño - Last Filed: 11/13/23 11:08>
--- NOTE | 2023-11-13 11:36 | RAD REPORT ---
EXAM DESCRIPTION: RADChest Single View11/13/2023 10:57 am CLINICAL HISTORY: re-eval COMPARISON: Chest Single View dated 11/09/2023; Chest Single View dated 10/12/2023 TECHNIQUE: Portable AP view of the chest. FINDINGS: Right chest wall Port-A-Cath in place. The lungs are clear. No pneumothorax or effusion. The cardiomediastinal contours are unremarkable. IMPRESSION: No acute cardiopulmonary process.
[2023-11-13] MEDS: KCL 20 MEQ/100 mL IVPB 0 ML IV ONE (12:06)
[2023-11-13] MEDS: POTASSIUM CL 40 MEQ in NA CHLORIDE 0.9% 500 ML IV SCH (13:24)
[2023-11-13 15:34] LABS: Absolute Lymphocytes (CBC) 0.5 K/uL (0.7-4.9); Absolute Monocytes 0.6 K/uL (0.1-1.3); Absolute Neutrophil 5.8 K/uL (1.8-8.0); Basophils % 0.2 % (0-1.3); Eosinophils % 0.6 % (0-4.4); Hemoglobin 8.5 g/dL (13.6-17.9); Lymphocytes % 7.4 % (15.3-44.8); MCH 30.2 pg (27.0-35.0); MCHC 32.8 g/dL (32.0-36.0); MCV 91.9 fL (80-100); MPV 9.6 fL (7.6-11.3); Monocytes % 8.6 % (3.3-12.3); Neutrophils % 83.2 % (41.7-73.7); Platelets 80 thou/uL (152-406); RBC Red Blood Cell Count 2.83 M/uL (4.33-5.43); Red Cell Distribution Width 16.5 % (12.1-15.2)
[2023-11-13 15:59] LABS: Potassium 3.2 mEq/L (3.5-5.1)
--- NOTE | 2023-11-13 16:08 | PN ---
Date of Progress Note: 11/13/2023 Subjective: The patient was admitted to the hospital with acute kidney injury, symptomatic anemia. The patient received transfusion. The patient was placed on Lasix drip. The patient has been respon ding very well. Physical Examination: Vital Signs: Blood pressure 105/84, pulse of 94, afebrile. The patient had good urine output of 240 0 even balance currently up to 2900. Chest: Clear to auscultation. Heart: S1, S2 regular. Abdomen: Soft, nontender. Extremities +1 edema. Neuro: Alert. No focality. Laboratory Data: Hemoglobin 8.9. Sodium 142, potassium 2.8, bicarb 28, BUN 74, creatinine 1.8. GFR of 40. Calcium 8.2. Phosphorus 2.4, magnesium 1.6. Albumin 2.5. Corrected calcium is 9.4. Current Medications: The patient is on include cefepime, midodrine 5 b.i.d., heparin, albumin, lidoc eddie, Lasix drip at 10 per hour. Imaging: Chest x-ray did not show any congestion. Assessment And Plan: The patient is on room air. I am going to go ahead and hold on the Lasix drip for the time being and we will continue to monitor the patient. 1.Hypertension, currently hypotension. Continue midodrine. 2.Acute kidney injury secondary to cardiorenal. Again, on chronic kidney disease. Again, patient l ooked to me back to normal volume. I will hold the Lasix and we will follow up. 3.Congestive heart failure with exacerbation, back to normal volume. 4.Anemia, status post transfusion. Follow up with primary. 5.Hypokalemia, hypomagnesemia. We will supplement. 6.Urinary tract infection, stable. Continue antibiotic. We will follow up culture. RICHARD/MAXIMINO Voice ID: [id number] Report ID: [id number]
[2023-11-13 16:25] VITALS: TEMP 94.6
--- NOTE | 2023-11-13 17:04 | P.PN ---
Date of Service: 11/13/23 [facility] Live Discharge Summary Patient Name: ROOSEVELT CORLEY Date of : 1960 Patient Status: Inpatient Attending Provider: Thania Treviño Date: 11/13/23 16:01 Initialization Date: 11/12/23 16:01 Admission Date: 11/09/23 Discharge Date: 11/13/23 Primary Care Provider: none Comment: Transfer pending IMU bed Reason for Admission: Swelling, weakness Consultations: Dr. Ledesma/Dr. Perez (cardiology) Dr. Carrillo (nephrology) Procedures: None Brief History of Present Illness: Mr. Corley is a 63-year-old gentleman who does not frequent a primary care physician. He is a rather poor historian . 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 Thus his voice is weak, mildly difficult to understand, without airway compromise. He presented to the emergency department today with a complaint of weakness, admits to a fall yesterday (11/08/2023). On exam he is a pale, disheveled, alert gentleman with pitting edema/anasarca, and scattered petechiae. He is noted to have an irregularly irregular rhythm with tachycardia. He states yesterday he just "swole up". He admits to mild dysphagia and has been taking clear to full liquids. He denies fever, nausea, vomiting, gingival bleeding, or black stools. He denies ever smoking; however, he did drink daily but states he quit 3 months ago and denies ever having DTs. We will admit him for aggressive diuresis, packed red blood cells, rate control of A-fib, echocardiogram, serial H&H's, and consultation to both cardiology and nephrology. Hospital Course: Mr. Corley was found to be quite anemic at 7.2 there was some question if this was delutional secondary to lower extremity edema/anasarca. As he had not been tolerating meals well his albumin was low at 2.7, and as he had no PCP, there was no record of any timely echo to this evaluate his EF. He was given albumin IV and 40 of Lasix IV twice daily. Secondary to his history of alcohol abuse and a platelet count of 70, he was also given 2 units of packed red blood cells. Repeat H&H 9.6 and 27.3. He initially responded pretty well to the diuresis, and had an improved creatinine from 2.91 to 1.94. However he remained in variable rate A-fib. As his platelets remain low, down to 46, and he exhibited petechiae in his upper extremities, heparin was initially held. After initial diuresis and increased ability, variable rate in A-fib was treated with an amiodarone drip. Mr. Corley did not respond well with an increase in rate into the 150s and down to the 30s. Amiodarone was discontinued and cardiology was notified. Dr. Perez requested the patient be transferred for placement of a pacemaker. Transfer was initiated. Mr. Corley has a pending IMU bed but his case will need to be discussed with Cardiology at [facility] prior to transfer. 11/12/23 continue to await IMU bed. Mr. Corley appears fatigued, pale, and remains in A-fib from a rate of 35 to a rate of 157 but does has decreased edema. He had a drop in his hemoglobin again today to 7.2 with platelets of 62. Continue to hold heparin and will transfuse 2 more units of packed RBCs. Blood pressure remains soft but maintains a MAP in the 60s with midodrine. (Currently 99/56) Admission Date: 11/09/23 Discharge Date: 11/13/23 Hospital Course: Pt seen and examined. I agree with the note by the SILO MAN. Hgb is 7.2 <- 9.3 <- 8.7 after 2 units of blood. Will give 2 more units of blood. Continue lasix 40mg iv BID. Consulted Cardiology for elevated troponin. Hold heparin due to thrombocytopenia and anemia. F/u Echo. Continue telemetry, metoprolol and heparin drip. Monitor H/H. Will replete potassium. Waiting for transfer. Ok to transfer pt once a bed becomes available. Discharge Condition: FAIR Vital Signs/Physical Exam: Temp Pulse Resp BP Pulse Ox 98.1 F 59 13 99/56 L 100 11/12/23 12:00 11/12/23 15:00 11/12/23 15:00 11/12/23 15:00 11/12/23 15:00 Laboratory Data at Discharge: WBC 8.40 thou/uL (4.3-10.9) 11/12/23 09:05 Hgb 7.2 g/dL (13.6-17.9) L D 11/12/23 09:05 Hct 21.8 % (39.6-49.0) L 11/12/23 09:05 Plt Count 62 thou/uL (152-406) L D 11/12/23 09:05 PT 13.5 SECONDS (9.4-12.5) H 11/10/23 04:57 INR 1.21 11/10/23 04:57 APTT 21.2 SECONDS (24.3-36.9) L 11/09/23 11:30 Sodium 141 mEq/L (136-145) 11/12/23 07:55 Potassium 3.7 mEq/L (3.5-5.1) D 11/12/23 07:55 BUN 82 mg/dL (7-18) H 11/12/23 07:55 Creatinine 1.69 mg/dL (0.70-1.30) H 11/12/23 07:55 Glucose 186 mg/dL (74-106) H 11/12/23 07:55 Uric Acid 10.4 mg/dL (3.5-7.2) H 11/11/23 06:47 Phosphorus 1.8 mg/dL (2.5-4.9) L 11/12/23 07:55 Magnesium 2.0 mg/dL (1.6-2.4) 11/12/23 07:55 Total Bilirubin Cancelled 11/12/23 04:00 AST Cancelled 11/12/23 04:00 ALT Cancelled 11/12/23 04:00 Alkaline Phosphatase Cancelled 11/12/23 04:00 Triglycerides 128 mg/dL (<150) 11/10/23 04:57 Cholesterol 117 mg/dL (<200) 11/10/23 04:57 HDL Cholesterol 49 mg/dL (40-60) 11/10/23 04:57 Cholesterol/HDL Ratio 2.39 11/10/23 04:57 Lipase 13 U/L (13-75) 11/09/23 11:30 Vital Signs/Physical Exam: Temp Pulse Resp BP Pulse Ox 97.4 F 43 L 12 95/70 100 11/13/23 07:00 11/13/23 10:00 11/13/23 10:00 11/13/23 10:00 11/13/23 10:00 Laboratory Data at Discharge: WBC 8.00 thou/uL (4.3-10.9) 11/13/23 05:07 Hgb 8.9 g/dL (13.6-17.9) L D 11/13/23 05:07 Hct 26.7 % (39.6-49.0) L 11/13/23 05:07 Plt Count 85 thou/uL (152-406) L D 11/13/23 05:07 PT 13.5 SECONDS (9.4-12.5) H 11/10/23 04:57 INR 1.21 11/10/23 04:57 APTT 21.2 SECONDS (24.3-36.9) L 11/09/23 11:30 Sodium 142 mEq/L (136-145) 11/13/23 05:14 Potassium 2.8 mEq/L (3.5-5.1) L D 11/13/23 05:14 BUN 74 mg/dL (7-18) H 11/13/23 05:14 Creatinine 1.87 mg/dL (0.70-1.30) H 11/13/23 05:14 Glucose 187 mg/dL (74-106) H 11/13/23 05:14 Uric Acid 10.4 mg/dL (3.5-7.2) H 11/11/23 06:47 Phosphorus 2.4 mg/dL (2.5-4.9) L 11/13/23 05:14 Magnesium 1.6 mg/dL (1.6-2.4) 11/13/23 05:14 Total Bilirubin Cancelled 11/13/23 04:00 AST Cancelled 11/13/23 04:00 ALT Cancelled 11/13/23 04:00 Alkaline Phosphatase Cancelled 11/13/23 04:00 Triglycerides 128 mg/dL (<150) 11/10/23 04:57 Cholesterol 117 mg/dL (<200) 11/10/23 04:57 HDL Cholesterol 49 mg/dL (40-60) 11/10/23 04:57 Cholesterol/HDL Ratio 2.39 08/01/24 04:57 Lipase 13 U/L (13-75) 11/09/23 11:30 Assessment And Plan - Plan Anemia - acute blood loss/petechiae 2units PRBC, serial H/H - 11/11/23 H/H improved to 9.3/27.3 11/11 Hgb dropped again from 9.3 to 7.2, 2 additional units PRBC overnight. 11/13/23 Repeat Hgb 8.9 haptogen level monitor and trend CHF with LORENE Echocardiogram preserved EF Beta-may Cardiology consultation - Dr. Ledesma following Nephrology consultation - Dr. Carrillo following Aggressive diuresis/lasix 40mg IV BID albumin IV x 1 given 11/10/23 Albumin /lasix drip initiated 11/11/23 creatinine improved 2.91 (11/08) to 1.94 (11/10) to 1.69 (11/11) to 1.87 (11/12) Strict Is & Os - 2500ml output today (11/12) Daily weight Atrial fibrillation: Metoprolol for rate control - pt has had soft blood pressures and episodes of bradycardia to 35bpm Amiodarone drip started but had to be stopped for worsening pt s/s rate range 35-170 Anticoagulation - heparin cautiously - (plt ct 45-80) bleeding/petechia/anemia Echocardiogram - EF preserved TSH Cardiology following - requested transfer yesterday (11/11/23) for pacemaker. No bed availability so far (11/11 - 11/12) Throat ca - radiation Hoarse, weak voice keep HOB up 30 degrees (has been getting chemo and radiation q Tuesday x 3) added viscous lidocaine and carafate Nutrition/Hypoalbuminemia - 11/10/23 albumin 25gm IV 11/10 albumin/lasix drip initiated 11/12 euvolemic albumin/lasix discontinued Midodrine continues for hypotension Pain Morphine 4mg q4h prn nausea control prn viscous lidocaine prn Leukocytosis UA/UC/Blood cultures 11/11/22 so far cultures negative Cefepime PSA - within normal VTE/GI prophylaxis SCD, heparin/Protonix Transfer accepted at [facility] 11/13/23
[2023-11-13 18:24] VITALS: BP 117/78
== END 2023-11-13 18:25 | disposition short-term general hospital (02) | DRG 280 ==
LOC: ER 09:58 → ERHOLD 15:09 → 3RD-ICU 11-10 12:21
PROVIDERS: ADMIT Hospitalist; ATTEND Hospitalist
PROC: 30233N1 Transfusion of Nonautologous Red Blood Cells into Peripheral Vein, Percutaneous Approach (ICD-10-PCS; 2023-11-09)
PROC: 0T9B70Z Drainage of Bladder with Drainage Device, Via Natural or Artificial Opening (ICD-10-PCS; principal; 2023-11-13)
DX: I48.91 Unspecified atrial fibrillation (principal); I50.33 Acute on chronic diastolic (congestive) heart failure; I21.A1 Myocardial infarction type 2; R57.0 Cardiogenic shock; I13.0 Hypertensive heart and chronic kidney disease with heart failure and stage 1 through stage 4 chronic kidney disease, or unspecified chronic kidney disease; D62 Acute posthemorrhagic anemia; N17.9 Acute kidney failure, unspecified; E46 Unspecified protein-calorie malnutrition; N39.0 Urinary tract infection, site not specified; N18.9 Chronic kidney disease, unspecified; D63.1 Anemia in chronic kidney disease; D63.0 Anemia in neoplastic disease; D69.6 Thrombocytopenia, unspecified; I87.8 Other specified disorders of veins; E83.39 Other disorders of phosphorus metabolism; E87.6 Hypokalemia; C09.0 Malignant neoplasm of tonsillar fossa; E66.9 Obesity, unspecified; D72.829 Elevated white blood cell count, unspecified; R13.10 Dysphagia, unspecified; Z60.2 Problems related to living alone; Z68.31 Body mass index [BMI] 31.0-31.9, adult; Z96.641 Presence of right artificial hip joint
CPT/HCPCS: 36415; 36430; 70450; 71045; 71250; 72125; 72170; 80048; 80053; 80061; 80069; 80074; 81001; 82550; 82570; 82728; 82947; 83540; 83615; 83690; 83735; 83880; 84100; 84132; 84145; 84156; 84443; 84484; 84550; 85014; 85018; 85025; 85610; 85730; 86850; 86900; 86901; 86920; 87040; 87086; 87088; 93005; 93306; 96361; 96374; 97161; 97530; 99285; G0103; J0282; J0461; J0692; J1644; J1940; J2470; J3475; J3480; J7040; J7050; J7060; P9016; P9047; Q5106

== ENCOUNTER 2024-08-14 08:00 | Day surgery (SDC) | payer OTHER ==
--- NOTE | 2024-07-30 10:34 | RAD REPORT ---
EXAM: Chest Pa And Lat (2 Views) HISTORY: 64 years Male Pre-op pending heart catheterization COMPARISON: 11/13/2023 FINDINGS: LUNGS/PLEURA: The lungs are clear. No pleural effusions or pneumothorax. No pulmonary edema. CARDIAC/MEDIASTINUM: The cardiac silhouette is within normal limits. UPPER ABDOMEN: No significant abnormality. BONES: Degenerative changes present but not acute osseous abnormality. LINES/TUBES/OTHER: Portacath. IMPRESSION: No evidence of acute cardiopulmonary disease.
[2024-07-30 11:05] LABS: Absolute Eosinophils 0.3 K/uL (0-0.5); Absolute Lymphocytes (CBC) 0.5 K/uL (0.7-4.9); Absolute Monocytes 0.6 K/uL (0.1-1.3); Absolute Neutrophil 2.2 K/uL (1.8-8.0); Basophils % 1.2 % (0-1.3); Eosinophils % 8.9 % (0-4.4); Hematocrit 32.9 % (39.6-49.0); Hemoglobin 11.2 g/dL (13.6-17.9); Lymphocytes % 13.8 % (15.3-44.8); MCV 91.2 fL (80-100); MPV 8.8 fL (7.6-11.3); Monocytes % 16.3 % (3.3-12.3); Neutrophils % 59.8 % (41.7-73.7); Platelets 144 thou/uL (152-406); RBC Red Blood Cell Count 3.61 M/uL (4.33-5.43); Red Cell Distribution Width 14.5 % (12.1-15.2)
[2024-07-30 11:11] LABS: PT Prothrombin Time 13.8 SECONDS (10-13.0); PTT, Activated Partial Thromb 33.1 SECONDS (27.2-37.4); Protime INR 1.22
--- NOTE | 2024-08-01 12:43 | EKG ---
Test Date: 2024-07-30 Test Time: 09:48:23 Manager Relocation: ANAYELI MEASUREMENT RESULTS: Intervals: Rate: 43 CO: 212 QRSD: 96 QT: 494 QTc: 417 [place]: P: 81 CO: 212 QRS: 53 T: 43 INTERPRETIVE STATEMENTS: Marked sinus bradycardia with 1st degree AV block Abnormal ECG Compared to ECG 03/12/2024 10:38:20 No significant changes Electronically Signed On 08-01-24 12:37:45 CDT by Dillon Ledesma
[2024-08-14] MEDS ORDERED: NA CHLORIDE 0.9% 500 ML ONE (08:29)
[2024-08-14] MEDS ORDERED: HEPA 1000U/500MLS 2,000 UNIT/1,000 ML BAG IV ONE (08:34)
[2024-08-14] MEDS ORDERED: CLOPIDOGREL 75 MG TABLET ONE (08:35)
[2024-08-14] MEDS ORDERED: LIDOCAINE 1% 20 ML MDV ONE (08:35)
[2024-08-14] MEDS ORDERED: MIDAZOLAM HCL 2 MG/2 ML INJ ONE (08:35)
[2024-08-14] MEDS ORDERED: FENTANYL CITR 100 MCG/2 ML ONE (08:35)
[2024-08-14] MEDS ORDERED: HEPARIN 10,000 UNIT/10 ML VIAL IV ONE (08:35)
[2024-08-14] MEDS ORDERED: ASPIRIN 325 MG TAB ONE (08:36)
[2024-08-14] MEDS ORDERED: HEPARIN 5000 UNIT/ML 1 ML VIAL ONE (08:36)
[2024-08-14] MEDS ORDERED: TICAGRELOR 90 MG TABLET PO ONE (08:36)
[2024-08-14 12:37] VITALS: O2SAT 100
[2024-08-14 12:40] VITALS: BP 115/56
--- NOTE | 2024-08-15 13:33 | OP ---
Date of Procedure: 08/14/2024 Surgeon: Dillon Ledesma Procedure Performed: Selective coronary angiogram. Indication For Procedure: Chest pains with abnormal stress test. Complications: None. Estimated Blood Loss: Less than 50 cc. Access: Right radial, closed by TR band. Sedation Time: 20 minutes with 1 of Versed and 25 of fentanyl. Description Of Procedure: After risks, benefits, and alternatives were explained to the patient, the patient agreed to proceed with procedure and signed informed consent. The patient was brought back to the laborer pipelines, prepped and draped in sterile fashion. Time-out was performed. Sedation was admini stered. Next, right radial access was obtained using ultrasound-guided micropuncture technique. Tig er 4 catheter was advanced over J-wire to the aortic root. Selective angiogram was done using same c atheter. At the end of procedure, catheter was removed over a J-wire. Sheath was removed. TR band was applied. Hemostasis achieved. The patient was moved back to recovery in stable condition. Findings: 1. Left main, normal. 2. LAD, proximal diffuse mild luminal irregularities with mid 90-degree bend that got 30% to 40% dise ase, then distal mild luminal irregularities. 3. Left circ, large, dominant, mild luminal irregularities. 4. RCA, small, nondominant, mild luminal regularities. Assessment And Plan: Mild mid LAD disease, very tortuous artery. Plan is to continue medical manage ment. YANCI/MAXIMINO Voice ID: [id number] Report ID: [id number]
== END 2024-08-14 12:15 | disposition home or self-care (01) ==
LOC: PRE 08:00
PROVIDERS: ATTEND Internal Medicine Interventional Cardiology
DX: I25.10 Atherosclerotic heart disease of native coronary artery without angina pectoris (principal); I77.1 Stricture of artery; I50.32 Chronic diastolic (congestive) heart failure; I48.0 Paroxysmal atrial fibrillation; I25.2 Old myocardial infarction
CPT/HCPCS: 93005; 85025; 80048; 36415; 85610; 85730; 71046; 93454; 76937; C1893; Q9966; J1644; J2003; J2250; J3010; J7040; 99152; 99153